=== PATIENT | female | born 1960 | race Caucasian/White ===

== ENCOUNTER 2017-09-06 02:18 | Inpatient (IN) | payer OTHER, MEDICARE ==
[~2017-09-06] VITALS: Ht 172.7 cm; Wt 107.4 kg
[2017-09-06 02:45] VITALS: BP 127/75; PULSE 103; RESP 14; RESP 16; TEMP 98.1; O2SAT 95; O2SAT 98
[2017-09-06] MEDS ORDERED: ceFAZolin 2 GM PREMIX 50 ML ONE (03:06)
[2017-09-06] MEDS ORDERED: GENTAMICIN 80 MG PREMIX 100 ML ONE (03:06)
[2017-09-06] MEDS ORDERED: ONDANSETRON HCL 4 MG/2 ML VIAL IV PUSH ONE ×2 (03:15→03:30)
[2017-09-06] MEDS ORDERED: GENTAMICIN 80 MG PREMIX 100 ML IV ONE (03:15)
[2017-09-06] MEDS ORDERED: ceFAZolin 2 GM PREMIX 50 ML IV ONE (03:15)
[2017-09-06] MEDS ORDERED: SODIUM CHLORIDE 0.9% FLUSH 10 ML FLUSH IVF PRN (03:15)
[2017-09-06] MEDS ORDERED: MORPHINE SULFATE 2 MG/ML INJ IV PUSH ONE (03:30)
--- NOTE | 2017-09-06 03:43 | RADRPT ---
EXAM DATE/TIME: 09/06/2017 03:00 [facility] COMPARISON: No previous studies available for comparison. INDICATIONS : Pt fell from standing position MEDICAL HISTORY : None. SURGICAL HISTORY : None. ENCOUNTER: Initial ACUITY: 1 day PAIN SCORE: 9/10 LOCATION: Right Ankle FINDINGS: Displaced oblique comminuted fractures of the distal tibia and fibula. There is good alignment At the mortise joint. Soft tissue injury at the fracture site. CONCLUSION: Displaced oblique comminuted fractures of the distal tibia and fibula. Shashi Espinosa MD on September 06, 2017 at 3:40 Board Certified Radiologist. This report was verified electronically.
[2017-09-06 03:52] LABS: AUTOMATED NEUTROPHIL # 5.6 TH/MM3 (1.8-7.7); BASOPHIL % 0.4 % (0.0-2.0); EOSINOPHIL # 0.1 TH/MM3 (0-0.4); HEMATOCRIT 29.7 % (35.0-46.0); HEMOGLOBIN 9.3 GM/DL (11.6-15.3); LYMPH % 24.5 % (9.0-44.0); MEAN CELL VOLUME 87.1 FL (80.0-100.0); MEAN CORPUSCULAR HEMOGLOBIN 27.1 PG (27.0-34.0); MEAN CORPUSCULAR HGB CONC 31.2 % (32.0-36.0); MEAN PLATELET VOLUME 6.7 FL (7.0-11.0); MONO % 4.5 % (0.0-8.0); MONOCYTE # 0.4 TH/MM3 (0-0.9); NEUT % 69.6 % (16.0-70.0); PLATELET COUNT 165 TH/MM3 (150-450); RED BLOOD COUNT 3.41 MIL/MM3 (4.00-5.30); RED CELL DISTRIBUTION WIDTH 16.3 % (11.6-17.2); WHITE BLOOD COUNT 8.1 TH/MM3 (4.0-11.0)
[2017-09-06 04:07] LABS: INTERNATIONAL NORMALIZED RATIO 1.1 RATIO; PROTHROMBIN TIME - PATIENT 11.4 SEC (9.8-11.6)
[2017-09-06 04:10] LABS: BICARBONATE 31.5 MEQ/L (21.0-32.0); BLOOD UREA NITROGEN 10 MG/DL (7-18); CALCIUM 7.2 MG/DL (8.5-10.1); CHLORIDE 105 MEQ/L (98-107); CREATININE 1.22 MG/DL (0.50-1.00); GLOMERULAR FILTRATION RATE 45 ML/MIN (>89); GLUCOSE,RANDOM 72 MG/DL (74-106); SODIUM (NA) 140 MEQ/L (136-145)
--- NOTE | 2017-09-06 04:10 | RADRPT ---
EXAM DATE/TIME: 09/06/2017 03:46 [facility] COMPARISON: No previous studies available for comparison. INDICATIONS : Pain post fall from standing position MEDICAL HISTORY : Diabetes mellitus type II. SURGICAL HISTORY : None. ENCOUNTER: Initial ACUITY: 1 day PAIN SCORE: 8/10 LOCATION: Bilateral chest FINDINGS: A single view of the chest demonstrates the lungs to be symmetrically aerated without evidence of mas s, infiltrate or effusion. The cardiomediastinal contours are unremarkable. Osseous structures are intact. CONCLUSION: No acute disease. Shashi Espinosa MD on September 06, 2017 at 4:07 Board Certified Radiologist. This report was verified electronically.
--- NOTE | 2017-09-06 04:11 | RADRPT ---
EXAM DATE/TIME: 09/06/2017 03:55 [facility] COMPARISON: No previous studies available for comparison. INDICATIONS : Trauma. Fall. RADIATION DOSE: 34.15 CTDIvol (mGy) MEDICAL HISTORY : None SURGICAL HISTORY : None. ENCOUNTER: Initial ACUITY: 1 day PAIN SCALE: 0/10 LOCATION: cranial TECHNIQUE: Multiple contiguous axial images were obtained of the head. Using automated exposure control and adj ustment of the mA and/or kV according to patient size, radiation dose was kept as low as reasonably a chievable to obtain optimal diagnostic quality images. DICOM format image data is available electro nically for review and comparison. FINDINGS: CEREBRUM: The ventricles are normal for age. No evidence of midline shift, mass lesion, hemorrhage or acute in farction. No extra-axial fluid collections are seen. POSTERIOR FOSSA: The cerebellum and brainstem are intact. The 4th ventricle is midline. The cerebellopontine angle i s unremarkable. EXTRACRANIAL: The visualized portion of the orbits is intact. SKULL: The calvaria is intact. No evidence of skull fracture. CONCLUSION: Normal examination for a patient of this age. Shashi Espinosa MD on September 06, 2017 at 4:09 Board Certified Radiologist. This report was verified electronically.
--- NOTE | 2017-09-06 04:13 | RADRPT ---
EXAM DATE/TIME: 09/06/2017 03:55 [facility] COMPARISON: No previous studies available for comparison. INDICATIONS : Trauma. Fall. RADIATION DOSE: 22.47 CTDIvol (mGy) MEDICAL HISTORY : None SURGICAL HISTORY : None. ENCOUNTER: Initial ACUITY: 1 day PAIN SCALE: 0/10 LOCATION: neck TECHNIQUE: Volumetric scanning of the cervical spine was performed. Multiplanar reconstructions in the sagittal, coronal and oblique axial planes were performed. Using automated exposure control and adjustment o f the mA and/or kV according to patient size, radiation dose was kept as low as reasonably achievable to obtain optimal diagnostic quality images. DICOM format image data is available electronically f or review and comparison. FINDINGS: VERTEBRAE: Normal vertebral body height. There is solid bony fusion at C4-5. There are mild to moderate degenera tive changes involving the cervical spine from C3-C7. ALIGNMENT: No evidence of subluxation. C2-C3: The bony spinal canal is normal in size. No evidence of disc bulge or herniation. The neural forami na are bilaterally patent. C3-C4: The bony spinal canal is normal in size. No evidence of disc bulge or herniation. The neural forami na are bilaterally patent. C4-C5: The bony spinal canal is normal in size. No evidence of disc bulge or herniation. The neural forami na are bilaterally patent. C5-C6: The bony spinal canal is normal in size. No evidence of disc bulge or herniation. The neural forami na are bilaterally patent. C6-C7: The bony spinal canal is normal in size. No evidence of disc bulge or herniation. The neural forami na are bilaterally patent. C7-T1: The bony spinal canal is normal in size. No evidence of disc bulge or herniation. The neural forami na are bilaterally patent. CONCLUSION: 1. No acute bony fracture. 2. Primary degenerative changes involving the cervical spine. 3. Solid bony fusion at C4-5. Shashi Espinosa MD on September 06, 2017 at 4:10 Board Certified Radiologist. This report was verified electronically.
--- NOTE | 2017-09-06 04:14 | RADRPT ---
EXAM DATE/TIME: 09/06/2017 03:46 [facility] COMPARISON: No previous studies available for comparison. INDICATIONS : Pain post fall from standing position MEDICAL HISTORY : Diabetes mellitus type II. SURGICAL HISTORY : None. ENCOUNTER: Initial ACUITY: 1 day PAIN SCORE: 8/10 LOCATION: Bilateral pelvis FINDINGS: A single frontal view of the pelvis demonstrates no evidence of fracture. The bony pelvic ring is in tact. Bony mineralization is normal. The soft tissues are intact. There is good alignment of the SI joints and pubic symphysis. CONCLUSION: Normal examination for a patient of this age. Shashi Espinosa MD on September 06, 2017 at 4:12 Board Certified Radiologist. This report was verified electronically.
[2017-09-06 04:18] VITALS: BP 162/68; PULSE 103; RESP 16; O2SAT 95
[2017-09-06] MEDS ORDERED: SODIUM CHLOR 0.9% 1000 ML INJ 1,000 ML IV SCH (04:27)
[2017-09-06 04:29] LABS: TOTAL PROTEIN 6.8 GM/DL (6.4-8.2)
[2017-09-06] MEDS ORDERED: ACETAMINOPHEN 325 MG TAB PO PRN (04:30)
[2017-09-06] MEDS ORDERED: BISACODYL 10 MG SUPP RECTAL PRN (04:30)
[2017-09-06] MEDS ORDERED: SENNOSIDES 8.6 MG TAB PO PRN (04:30)
[2017-09-06] MEDS ORDERED: MAGNESIUM HYDROXIDE SUSP 30 ML CUP PO PRN (04:30)
[2017-09-06] MEDS ORDERED: SODIUM CHLORIDE 0.9% FLUSH 10 ML FLUSH IV FLUSH PRN ×2 (04:30→11:00)
[2017-09-06] MEDS ORDERED: LACTULOSE SYRUP 20 GM/30 ML CUP PO PRN (04:30)
[2017-09-06 04:42] LABS: CALCIUM-PROTEIN CORRECTED 7.4 MG/DL (8.5-10.1)
[2017-09-06] MEDS ORDERED: CALCIUM GLUCONATE 10% 1 GM/10 ML VIAL IV PUSH ONE (05:00)
[2017-09-06] MEDS ORDERED: DEXTROSE 50% IN WATER 50 ML VIAL(D50) IV PUSH PRN (05:00)
[2017-09-06] MEDS ORDERED: GLUCAGON 1 MG/ML VIAL OTHER PRN (05:00)
[2017-09-06] MEDS ORDERED: MELO7.5T27 PO (05:01)
[2017-09-06] MEDS ORDERED: NOVO7030P2 SQ (05:01)
[2017-09-06] MEDS ORDERED: LEXA5TAB PO (05:01)
[2017-09-06] MEDS ORDERED: SOMA250T PO (05:01)
[2017-09-06] MEDS ORDERED: NEUR600T PO (05:01)
[2017-09-06] MEDS ORDERED: XANA2TAB2 PO (05:01)
[2017-09-06] MEDS ORDERED: DIVA250ER PO (05:01)
[2017-09-06] MEDS ORDERED: OXYC60TA8 PO (05:01)
--- NOTE | 2017-09-06 05:04 | HHI.HP ---
[facility] Unknown Admission Diagnosis Open comminuted R tib/fib fracture; DM; chronic pain Diagnoses: (1) Fall Diagnosis: Principal (2) Open fracture of right fibula and tibia Diagnosis: Principal (3) Renal insufficiency Diagnosis: Principal (4) Hypocalcemia Diagnosis: Principal (5) DM (diabetes mellitus) Diagnosis: Principal Travel History International Travel<30 Days: No Contact w/Intl Traveler <30 Da: No Traveled to Known Affected Are: No History of Present Illness This is a 57-year-old female with a PMH of HTN, Chronic Back Pain and DM who is brought to the ER by EMS secondary to fall w/ right leg pain. Pt w/ mechanical fall from standing position, no head trauma or LOC reported. Obvious open right leg injury. S/p Morphine 10mg IV prior to arrival, pt poor historian due to medication, however reports severe 10/10 pain, constant, sharp, non- radiating. On arrival, BP 127/75, HR 103, O2 sat 95% on 2L NC, Afebrile. CBC essentially unremarkable. Creatinine 1.22, previous labs for comparison. Calcium 7.2. INR 1.1. Alcohol negative. CT Head normal. CT C-spine with no acute fracture. CXR negative. Pelvic X-ray normal. Ankle X-ray with displaced oblique comminuted fractures of distal tibia and fibula. S/p splint in ER. Dr. Deutsch consulted by ER physician, plan is for surgical intervention. Review of Systems Except as stated in HPI: all other systems reviewed are Neg ROS: 14 point review of systems otherwise negative. Past Family Social History Past Medical History PMH: HTN, Chronic Back Pain and DM Past Surgical History PAST SURGICAL HISTORY: Cholecystectomy Allergies: Coded Allergies: No Known Allergies (Unverified , 09/06/17) Family History PAST FAMILY HISTORY: Reviewed. No h/o DM or CAD Social History PAST SOCIAL HISTORY: Negative for alcohol, tobacco or drugs. Physical Exam Vital Signs Vital Signs Date Time Temp Pulse Resp B/P (MAP) Pulse Ox O2 Delivery O2 Flow Rate FiO2 09/06/17 04:18 103 16 162/68 (99) 95 Nasal Cannula 2.00 09/06/17 02:45 95 Nasal Cannula 3.00 09/06/17 02:45 98.1 103 14 127/75 (92) 98 Nasal Cannula 2.00 09/06/17 02:45 16 95 Nasal Cannula 3.00 Physical Exam PE: GENERAL: Middle-aged white female in no acute distress. Sedated secondary to medication. HEENT: PERRLA, EOMI. No scleral icterus or conjunctival pallor. No lid lag or facial droop. CARDIOVASCULAR: Regular rate and rhythm. No obvious murmurs to auscultation. No chest tenderness to palpation. RESPIRATORY: No obvious rhonchi or wheezing. Clear to auscultation. Breath sounds equal bilaterally. GASTROINTESTINAL: Abdomen soft, non-tender, nondistended. BS normal. MUSCULOSKELETAL: Extremities without clubbing, cyanosis, or edema. No obvious deformities. Decreased ROM of RLE due to injury. Pulses intact. NEUROLOGICAL: Awake, alert. No focal neurologic deficits. Moving both upper and lower extremities spontaneously. Laboratory Laboratory Tests Test 09/06/17 03:40 White Blood Count 8.1 Red Blood Count 3.41 Hemoglobin 9.3 Hematocrit 29.7 Mean Corpuscular Volume 87.1 Mean Corpuscular Hemoglobin 27.1 Mean Corpuscular Hemoglobin Concent 31.2 Red Cell Distribution Width 16.3 Platelet Count 165 Mean Platelet Volume 6.7 Neutrophils (%) (Auto) 69.6 Lymphocytes (%) (Auto) 24.5 Monocytes (%) (Auto) 4.5 Eosinophils (%) (Auto) 1.0 Basophils (%) (Auto) 0.4 Neutrophils # (Auto) 5.6 Lymphocytes # (Auto) 2.0 Monocytes # (Auto) 0.4 Eosinophils # (Auto) 0.1 Basophils # (Auto) 0.0 CBC Comment DIFF FINAL Differential Comment Prothrombin Time 11.4 Prothromb Time International Ratio 1.1 Activated Partial Thromboplast Time 26.6 Blood Urea Nitrogen 10 Creatinine 1.22 Random Glucose 72 Total Protein 6.8 Calcium Level 7.2 Sodium Level 140 Potassium Level 3.8 Chloride Level 105 Carbon Dioxide Level 31.5 Anion Gap 4 Estimat Glomerular Filtration Rate 45 Protein Corrected Calcium 7.4 Ethyl Alcohol Level LESS THAN 3 Result Diagram: 09/06/1733909/06/17339 Caprini VTE Risk Assessment Caprini VTE Risk Assessment: Mod/High Risk (score >= 2) Caprini Risk Assessment Model Point Value = 1 Point Value = 2 Point Value = 3 Point Value = 5 Age 41-60 Minor surgery BMI > 25 kg/m2 Swollen legs Varicose veins or History of unexplained or recurrent spontaneous Oral contraceptives or hormone replacement Sepsis (< 1 month) Serious lung disease, including pneumonia (< 1 month) Abnormal pulmonary function Acute myocardial infarction Congestive heart failure (< 1 month) History of inflammatory bowel disease Medical patient at bed rest Age 61-74 Arthroscopic surgery Major open surgery (> 45 min) Laparoscopic surgery (> 45 min) Malignancy Confined to bed (> 72 hours) Immobilizing plaster cast Central venous access Age >= 75 History of VTE Family history of VTE Factor V Leiden Prothrombin [id number] Lupus anticoagulant Anticardiolipin antibodies Elevated serum homocysteine Heparin-induced thrombocytopenia Other congenital or acquired thrombophilia Stroke (< 1 month) Elective arthroplasty Hip, pelvis, or leg fracture Acute spinal cord injury (< 1 month) Prophylaxis Regimen Total Risk Factor Score Risk Level Prophylaxis Regimen 0-1 Low Early ambulation 2 Moderate Order ONE of the following: *Sequential Compression Device (SCD) *Heparin 5000 units SQ BID 3-4 Higher Order ONE of the following medications: *Heparin 5000 units SQ TID *Enoxaparin/Lovenox 40 mg SQ daily (WT < 150 kg, CrCl > 30 mL/min) *Enoxaparin/Lovenox 30 mg SQ daily (WT < 150 kg, CrCl > 10-29 mL/min) *Enoxaparin/Lovenox 30 mg SQ BID (WT < 150 kg, CrCl > 30 mL/min) AND/OR *Sequential Compression Device (SCD) 5 or more Highest Order ONE of the following medications: *Heparin 5000 units SQ TID (Preferred with Epidurals) *Enoxaparin/Lovenox 40 mg SQ daily (WT < 150 kg, CrCl > 30 mL/min) *Enoxaparin/Lovenox 30 mg SQ daily (WT < 150 kg, CrCl > 10-29 mL/min) *Enoxaparin/Lovenox 30 mg SQ BID (WT < 150 kg, CrCl > 30 mL/min) AND *Sequential Compression Device (SCD) Assessment and Plan Problem List: (1) Fall ICD Code: W19.XXXA - Unspecified fall, initial encounter (2) Open fracture of right fibula and tibia ICD Code: S82.201B - Unspecified fracture of shaft of right tibia, initial encounter for open fracture type I or II; S82.401B - Unspecified fracture of shaft of right fibula, initial encounter for open fracture type I or II (3) Hypocalcemia ICD Code: E83.51 - Hypocalcemia (4) Renal insufficiency ICD Code: N28.9 - Disorder of kidney and ureter, unspecified (5) DM (diabetes mellitus) ICD Code: E11.9 - Type 2 diabetes mellitus without complications Assessment and Plan A/P: 1. Fall: s/p mechanical fall from standing position, no LOC or head trauma. CT Head w/ no acute findings, CT C-Spine negative for fracture, images reviewed by me. 2. Right Tib-Fib Fx: Acute. Open. Secondary to fall. Ankle X-ray w/ displaced oblique comminuted fractures of the distal tibia and fibula, images reviewed by me. Dr. Deutsch consulted by ER physician, plan is for surgical intervention. NPO, IVF, analgesics/antiemetics as needed-caution w/ over- sedation. CT LE pending, will follow up results. 3. Hypocalcemia: Ca 7.2, will give Ca 1gm IV now, recheck labs in am 4. Renal Insufficiency: Creatinine 1.22, no previous labs for comparison. IVF for hydration. Repeat labs in am. 5. DM: Sliding scale w/ Accu-Cheks. Resume home Insulin post-op 6. DVT Prophylaxis: Anticoagulation post op per Ortho 7. Social work for d/c planning as needed. 8. Case discussed w/ ER physician at length, records/labs/imaging reviewed by me. Physician Certification 2 Midnight Certification Type: Admission for Inpatient Services Order for Inpatient Services The services are ordered in accordance with Medicare regulations or non- Medicare payer requirements, as applicable. In the case of services not specified as inpatient-only, they are appropriately provided as inpatient services in accordance with the 2-midnight benchmark. Estimated LOS (days): 2 days is the estimated time the patient will need to remain in the hospital, assuming treatment plan goals are met and no additional complications. Post-Hospital Plan: Not yet determined Autumn Nam MD Sep 06, 2017 05:04
[2017-09-06] MEDS ORDERED: PILL SPLITTER OTHER PRN (05:15)
[2017-09-06] MEDS ORDERED: CALCIUM GLUCONATE INJ 1 GM in DEXTROSE 5% IN WATER 100ML INJ 100 ML IV ONE ×2 (05:15)
--- NOTE | 2017-09-06 05:28 | RADRPT ---
EXAM DATE/TIME: 09/06/2017 05:11 [facility] COMPARISON: No previous studies available for comparison. INDICATIONS : Trauma, fall. RADIATION DOSE: 7.29 CTDIvol (mGy) MEDICAL HISTORY : None SURGICAL HISTORY : None. ENCOUNTER: Initial ACUITY: 1 day PAIN SCALE: 10/10 LOCATION: Right ankle. TECHNIQUE: Volumetric scanning of the tibia and fibula was performed. Using automated exposure control and adju stment of the mA and/or kV according to patient size, radiation dose was kept as low as reasonably ac hievable to obtain optimal diagnostic quality images. DICOM format image data is available [facility] for review and comparison. FINDINGS: There are displaced fractures involving the distal tibia and fibula. There is a fracture line extendi ng into the articulating surface of the distal tibia at the mortise joint. There is a fracture of the distal fibula. No joint dislocation is demonstrated. The talus bone is grossly intact. CONCLUSION: Comminuted displaced fractures involving the distal one third shaft of the tibia and fibula. There is a nondisplaced intra-articular fracture involving the distal tibia at the mortise joint. There are f ractures involving the distal fibula. Shashi Espinosa MD on September 06, 2017 at 5:23 Board Certified Radiologist. This report was verified electronically.
--- NOTE | 2017-09-06 05:38 | PD ---
HPI Chief Complaint: Injury Time Seen by Provider: 03:09 Travel History International Travel<30 days: No Contact w/Intl Traveler<30days: No Traveled to known affect area: No History of Present Illness HPI 57-year-old female presents to the emergency department from home by EMS transport for evaluation of acute distal right lower leg injury. Patient presents with obvious open fracture of the distal right lower leg. Patient states that she was in her bathroom the floor strep Ellen she lost her balance and fell. Patient denies hitting her head or having loss of consciousness. Patient has chronic neck pain. Patient denies upper back pain lower back pain chest pain abdominal pain pelvic pain or other extremity pain. Patient does have history of diabetes as well as chronic pain syndrome. According to the at bedside she also has intermittent numbness of the left or right foot that sometimes gives way on her but this is not persistent. Patient is treated with oxycodone and OxyContin for chronic pain syndrome. Patient received morphine sulfate 10 mg IV via EMS prior to arrival and also presented with posterior cardboard splint of the right lower leg. Patient denies other injury. Last oral intake was sometime around midnight or before. reports he went to bed at 10:30 PM and heard her yelling for him but he found her in the evening room but evidence of injury had occurred in the bathroom with bleeding on the floor. Patient had pulled herself into the living room. did not witness fall states certain objects for her to stand upon except perhaps a toilet to follow-up nothing was broken in the bathroom. Tetanus status is current according the patient within the past 2-3 years. PFSH Past Medical History Narrative Medical Diabetes anxiety depression chronic back pain and chronic pain syndrome cholecystectomy no tobacco use nursing notes reviewed Diabetes: Yes Patient Takes Glucophage: No Diminished Hearing: No Musculoskeletal: Yes (CHRONIC BACK PAIN) Immunizations Current: Yes Past Surgical History Cholecystectomy: Yes Social History Alcohol Use: No Tobacco Use: No Substance Use: No Allergies-Medications (Allergen,Severity, Reaction): Coded Allergies: No Known Allergies (Unverified , 09/06/17) Reported Meds & Prescriptions Reported Meds & Active Scripts Active Reported Novolin 70-30 Inj (Insulin Human Isoph/Insulin Regular) 1,000 Unit/10 Ml Vial 35 Units SQ BID Soma (Carisoprodol) 250 Mg Tab 250 Mg PO TID PRN Meloxicam 7.5 Mg Tab 7.5 Mg PO DAILY Lexapro (Escitalopram Oxalate) 5 Mg Tab 5 Mg PO DAILY Neurontin (Gabapentin) 600 Mg Tab 600 Mg PO BID Depakote ER (Divalproex Sodium) 250 Mg Aisha 250 Mg PO DAILY Xanax (Alprazolam) 2 Mg Tab 2 Mg PO BID PRN Oxycontin (Oxycodone HCl) 60 Mg Tab 60 Mg PO TID Review of Systems Except as stated in HPI: all other systems reviewed are Neg Physical Exam Narrative GENERAL: Well-developed well-nourished obese female in no acute distress as she has received morphine sulfate 2 mg IV prior to arrival to the emergency department; GCS 15 SKIN: Warm and dry. HEAD: Atraumatic. Normocephalic. EYES: Pupils equal and round. No scleral icterus. No injection or drainage. ENT: No nasal bleeding or discharge. Mucous membranes pink and moist. NECK: Trachea midline. No JVD. CARDIOVASCULAR: Regular rate and rhythm. RESPIRATORY: No accessory muscle use. Clear to auscultation. Breath sounds equal bilaterally. GASTROINTESTINAL: Abdomen soft, non-tender, nondistended. Hepatic and splenic margins not palpable. MUSCULOSKELETAL: Extremities without clubbing, cyanosis, or edema. No obvious deformities. Obvious right lower leg deformity with external rotation large 10 cm x 8 cm x 5 cm gaping laceration bony fragments are not visualized large amount of subcutaneous fat is noted dorsalis pedis pulses 2+ to palpation with capillary refill brisk and less than 2 seconds per digit patient reports intact sensation to light touch and able to demonstrate range of motion of toes range of motion of ankle is deferred in view of location of fracture. NEUROLOGICAL: Awake and alert. No obvious cranial nerve deficits. Motor grossly within normal limits. Five out of 5 muscle strength in the arms and legs. Normal speech. PSYCHIATRIC: Appropriate mood and affect; insight and judgment normal. Data Data Last Documented VS Vital Signs Date Time Temp Pulse Resp B/P (MAP) Pulse Ox O2 Delivery O2 Flow Rate FiO2 09/06/17 04:18 103 16 162/68 (99) 95 Nasal Cannula 2.00 09/06/17 02:45 98.1 Orders Orders Ankle, Complete ([id number]) (09/06/17 ) Cefazolin 2 Gm Premix (Ancef 2 Gm Premix (09/06/17 03:06) Gentamicin 80 Mg Premix (Gentamicin 80 M (09/06/17 03:06) Basic Metabolic Panel (Bmp) (09/06/17 03:09) Complete Blood Count With Diff (09/06/17 03:09) Prothrombin Time / Inr (Pt) (09/06/17 03:09) Act Partial Throm Time (Ptt) (09/06/17 03:09) Type And Screen (09/06/17 03:09) Alcohol (Ethanol) (09/06/17 03:09) Drug Screen, Random Urine (09/06/17 03:09) Chest, Single Ap (09/06/17 03:09) Ct Brain W/O Iv Contrast(Rout) (09/06/17 03:09) Ct Cerv Spine W/O Contrast (09/06/17 03:09) Iv Access Insert/Monitor (09/06/17 03:09) Ecg Monitoring (09/06/17 03:09) Oximetry (09/06/17 03:09) Oxygen Administration (09/06/17 03:09) Cefazolin 2 Gm Premix (Ancef 2 Gm Premix (09/06/17 03:15) Ondansetron Inj (Zofran Inj) (09/06/17 03:15) Sodium Chloride 0.9% Flush (Ns Flush) (09/06/17 03:15) Gentamicin 80 Mg Premix (Gentamicin 80 M (09/06/17 03:15) NPO (09/06/17 03:09) Splint Or Brace Apply/Monitor (09/06/17 03:09) Electrocardiogram (09/06/17 ) Morphine Inj (Morphine Inj) (09/06/17 03:30) Ondansetron Inj (Zofran Inj) (09/06/17 03:30) Pelvis, Ap Only (Routine) (09/06/17 ) Protein Corrected Calcium(Pcc) (09/06/17 03:40) Ct Tib/Fib W/O Iv Contrast (09/06/17 ) Admit Order (Ed Use Only) (09/06/17 ) Non Categorical Preschool Teacher / Telemetry [id number] (09/06/17 04:25) Diet Npo (09/06/17 Breakfast) Activity Bed Rest (09/06/17 04:25) Notify Dr: Other (09/06/17 04:25) Consult Orthopedic (09/06/17 ) Admit To Inpatient (09/06/17 ) Vital Signs (Adult) Q4H (09/06/17 04:27) Activity Bed Rest (09/06/17 04:27) Sodium Chlor 0.9% 1000 Ml Inj (Ns 1000 M (09/06/17 04:27) Sodium Chloride 0.9% Flush (Ns Flush) (09/06/17 04:30) Sodium Chloride 0.9% Flush (Ns Flush) (09/06/17 09:00) Ondansetron Inj (Zofran Inj) (09/06/17 04:30) Comprehensive Metabolic Panel (09/07/17 06:00) Complete Blood Count With Diff (09/07/17 06:00) Acetaminophen (Tylenol) (09/06/17 04:30) Acetamin-Hydrocod 325-5 Mg ([place] 5-325 (09/06/17 04:30) Morphine Inj (Morphine Inj) (09/06/17 04:30) Docusate Sodium-Senna (Stacy-Colace) (09/06/17 09:00) Magnesium Hydroxide Liq (Milk Of Magnesi (09/06/17 04:30) Sennosides (Senokot) (09/06/17 04:30) Bisacodyl Supp (Dulcolax Supp) (09/06/17 04:30) Lactulose Liq (Lactulose Liq) (09/06/17 04:30) Inpatient Certification (09/06/17 ) Labs Laboratory Tests Test 09/06/17 03:40 White Blood Count 8.1 TH/MM3 Red Blood Count 3.41 MIL/MM3 Hemoglobin 9.3 GM/DL Hematocrit 29.7 % Mean Corpuscular Volume 87.1 FL Mean Corpuscular Hemoglobin 27.1 PG Mean Corpuscular Hemoglobin Concent 31.2 % Red Cell Distribution Width 16.3 % Platelet Count 165 TH/MM3 Mean Platelet Volume 6.7 FL Neutrophils (%) (Auto) 69.6 % Lymphocytes (%) (Auto) 24.5 % Monocytes (%) (Auto) 4.5 % Eosinophils (%) (Auto) 1.0 % Basophils (%) (Auto) 0.4 % Neutrophils # (Auto) 5.6 TH/MM3 Lymphocytes # (Auto) 2.0 TH/MM3 Monocytes # (Auto) 0.4 TH/MM3 Eosinophils # (Auto) 0.1 TH/MM3 Basophils # (Auto) 0.0 TH/MM3 CBC Comment DIFF FINAL Differential Comment Prothrombin Time 11.4 SEC Prothromb Time International Ratio 1.1 RATIO Activated Partial Thromboplast Time 26.6 SEC Blood Urea Nitrogen 10 MG/DL Creatinine 1.22 MG/DL Random Glucose 72 MG/DL Total Protein 6.8 GM/DL Calcium Level 7.2 MG/DL Sodium Level 140 MEQ/L Potassium Level 3.8 MEQ/L Chloride Level 105 MEQ/L Carbon Dioxide Level 31.5 MEQ/L Anion Gap 4 MEQ/L Estimat Glomerular Filtration Rate 45 ML/MIN Protein Corrected Calcium 7.4 MG/DL Ethyl Alcohol Level LESS THAN 3 MG/DL MDM Medical Decision Making Medical Screen Exam Complete: Yes Emergency Medical Condition: Yes Medical Record Reviewed: Yes Interpretation(s) EKG sinus tachycardia rate [address] elevation or injury pattern change noted no ectopy Last Impressions Head CT 09/06/17308 Signed Impressions: Service Date/Time: Wednesday, September 06, 2017 03:55 - CONCLUSION: Normal examination for a patient of this age. Shashi Espinosa MD Chest X-Ray 09/06/17308 Signed Impressions: Service Date/Time: Wednesday, September 06, 2017 03:46 - CONCLUSION: No acute disease. Shashi Espinosa MD Cervical Spine CT 09/06/17308 Signed Impressions: Service Date/Time: Wednesday, September 06, 2017 03:55 - CONCLUSION: 1. No acute bony fracture. 2. Primary degenerative changes involving the cervical spine. 3. Solid bony fusion at C4-5. Shashi Espinosa MD Pelvis X-Ray 09/06/17 0000 Signed Impressions: Service Date/Time: Wednesday, September 06, 2017 03:46 - CONCLUSION: Normal examination for a patient of this age. Shashi Espinosa MD Ankle X-Ray 09/06/17 0000 Signed Impressions: Service Date/Time: Wednesday, September 06, 2017 03:00 - CONCLUSION: Displaced oblique comminuted fractures of the distal tibia and fibula. Shashi Espinosa MD CBC & BMP Diagram 09/06/17 03:40 Total Protein 6.8, Calcium Level 7.2 *L Vital Signs Date Time Temp Pulse Resp B/P (MAP) Pulse Ox O2 Delivery O2 Flow Rate FiO2 09/06/17 04:18 103 16 162/68 (99) 95 Nasal Cannula 2.00 09/06/17 02:45 95 Nasal Cannula 3.00 09/06/17 02:45 98.1 103 14 127/75 (92) 98 Nasal Cannula 2.00 09/06/17 02:45 16 95 Nasal Cannula 3.00 Differential Diagnosis Comminuted compound fracture, neurovascular tendon injury, minor closed head injury, cervical spine sprain strain fracture, polysubstance ingestion, seizure Narrative Course Patient placed on satellite project site monitor IV access obtained specimens collected and sent for resulting splinted ankle was exposed with large 10 x 8 x 5 cm laceration exposed subcutaneous fat no bony fragments identified dorsalis pedis pulse 2+ to palpation capillary refill less than 2 seconds imaging studies obtained and [place] posterior long leg splint applied; CT of the brain and cervical spine performed which reveals no acute abnormality chest x-ray unremarkable and pelvis x-ray reveals no acute bony abnormality; call was placed to conversion developer orthopedist in case discussed with Dr. Weaver. Recommends CT of the lower leg. Physician Communication Physician Communication discussed with Parish Deutsch --CT ab=nd will take patient to the OR at 7 AM admit to medicine --discussed with Amalia Storm MD Sep 06, 2017 05:38
[2017-09-06 05:40] VITALS: BP 130/73; PULSE 105; RESP 20; TEMP 97.6; O2SAT 95
[2017-09-06] MEDS ORDERED: POVIDONE IODINE 5% (ANTISEPSIS KIT) 4 APPLICATIONS EACH NARE PRN (06:00)
[2017-09-06] MEDS ORDERED: SODIUM CHLORID 0.9% 500 ML IV PRN (06:00)
[2017-09-06] MEDS ORDERED: CHLORHEXIDINE GLUCONATE 2 % 1 PACK (2 CLOTHS) TOPICAL PRN (06:00)
[2017-09-06] MEDS ORDERED: LACTATED RINGER'S 1000 ML IV PRN (06:00)
--- NOTE | 2017-09-06 07:17 | PD.ORT.PN ---
Objective Vitals Vital Signs Date Time Temp Pulse Resp B/P (MAP) Pulse Ox O2 Delivery O2 Flow Rate FiO2 09/06/17 05:40 97.6 105 20 130/73 (92) 95 09/06/17 05:35 09/06/17 04:18 103 16 162/68 (99) 95 Nasal Cannula 2.00 09/06/17 02:45 95 Nasal Cannula 3.00 09/06/17 02:45 98.1 103 14 127/75 (92) 98 Nasal Cannula 2.00 09/06/17 02:45 16 95 Nasal Cannula 3.00 I/O 09/05/17 09/05/17 09/05/17 09/06/17 09/06/17 09/06/17 07:00 15:00 23:00 07:00 15:00 23:00 Intake Total 150 ml Balance 150 ml IV Total 150 ml Result Diagram: 09/06/17 0340 09/06/17 0340 Other Results Laboratory Tests Test 09/06/17 03:40 Prothromb Time International Ratio 1.1 RATIO Prothrombin Time 11.4 SEC (9.8-11.6) Imaging Last [address] 09/06/17 030 Signed Impressions: Service Date/Time: Wednesday, September 06, 2017 03:55 - CONCLUSION: Normal examination for a patient of this age. Shashi Espinosa MD Chest X-Ray 09/06/17308 Signed Impressions: Service Date/Time: Wednesday, September 06, 2017 03:46 - CONCLUSION: No acute disease. Shashi Espinosa MD Cervical Spine CT 09/06/17 030 Signed Impressions: Service Date/Time: Wednesday, September 06, 2017 03:55 - CONCLUSION: 1. No acute bony fracture. 2. Primary degenerative changes involving the cervical spine. 3. Solid bony fusion at C4-5. Shashi Espinosa MD Pelvis X-Ray 09/06/17 0000 Signed Impressions: Service Date/Time: Wednesday, September 06, 2017 03:46 - CONCLUSION: Normal examination for a patient of this age. Shashi Espinosa MD Lower Extremity CT 09/06/17 0000 Signed Impressions: Service Date/Time: Wednesday, September 06, 2017 05:11 - CONCLUSION: Comminuted displaced fractures involving the distal one third shaft of the tibia and fibula. There is a nondisplaced intra-articular fracture involving the distal tibia at the mortise joint. There are fractures involving the distal fibula. Shashi Espinosa MD Ankle X-Ray 09/06/17 0000 Signed Impressions: Service Date/Time: Wednesday, September 06, 2017 03:00 - CONCLUSION: Displaced oblique comminuted fractures of the distal tibia and fibula. Shashi Espinosa MD Assessment & Plan Assessment and Plan Large Open tibia and fibular shaft fracture and nondisplaced ankle plafond fracture Recommend Urgent I and d and stabilization: internal vs. external Informed consent obtained Full note dictated Carlitos Deutsch MD Sep 06, 2017 07:17
[2017-09-06] MEDS ORDERED: GENTAMICIN SULFATE 80 MG/2 ML VIAL ONE (07:57)
[2017-09-06] MEDS ORDERED: ACETAMINOPHEN 1000 MG/100 ML 100 ML IV ONE (08:04)
--- NOTE | 2017-09-06 08:13 | MB ---
cc: OKSANA VARGAS M.D. DATE OF CONSULTATION: 09/06/2017 REASON FOR CONSULTATION: Severe right open tibia fracture and ankle fracture and tibial shaft fracture and ankle fracture. HISTORY OF PRESENT ILLNESS Nicol Avila is a 57-year-old female with insulin-dependent diabetes. She sustained a fall in her home and suffered a large open fracture of her right distal tibia and fibula with extension into the ankle joint both weightbearing, tibial plafond and distal fibula. The patient was initiated with antibiotics appropriately dressed and splinted and CT scan performed. She has been evaluated by medical service consultation requested with the undersigned with the plan to go for urgent surgery for this limb threatening condition. PAST MEDICAL HISTORY: 1. Her past medical history is significant for the insulin dependent diabetes. 2. She has hypertension 3. Chronic low back pain. PAST SURGICAL HISTORY: Past surgical history is positive for cholecystectomy. ALLERGIES NO KNOWN DRUG ALLERGIES. MEDICATIONS medications including Insulin are reviewed. SOCIAL HISTORY She is . Denies alcohol, tobacco and drugs. Her is at the bedside. PHYSICAL EXAMINATION IN GENERAL: The patient is alert, oriented and appropriate. She is somewhat emotional when we discuss the severity of her injury. EXTREMITIES: She has good function of bilateral upper extremities and left lower extremity. The right lower extremity is splinted and there is no bleeding visualized currently. The ER physician described the wound as 8 x 10 cm. She has good capillary refill at the toes and she has sensation which appears to be the same right and left. RADIOLOGIC: X-ray of the right tibia is reviewed which shows a distal shaft fracture, oblique of the tibia and also of the fibula slightly lower. Additionally there is radiolucency seen more distal in the fibula and a vertically oriented, oblique fracture line going all the way down from the shaft portion into the ankle joint. CT scan confirms a fracture line anterior-posterior involving the distal tibia as well as fibula involvement and the plafond appears to be intact. ASSESSMENT Severe open right tibia and fibula fracture with nondisplaced tibial plafond fracture. MEDICAL DECISION MAKING Her condition was discussed the options of treatment were discussed. The recommendation is to proceed with surgical intervention for irrigation and debridement with a number one goal to try to prevent infection on today's operation secondary goal is stabilization in the options of external fixator and internal fixator plate and screws and IM jade were discussed. There is a possibility of doing external fixator and coming back to later date we talked about the possibility of a vacuum-assisted closure device. We talked about the inherent risk of surgery and ultimately were trying to save the limb and there is theoretical risk of need for amputation as she has chronic wound problems and/or chronic swelling. There is risk of infection, nerve damage, blood vessel damage, anesthetic complications, medical complications, mechanical complications, need for revision surgery and unforeseen possible complications all of her questions were answered. A detailed informed consent. MD RENEE Adorno/pierce /7:07 AM /7:46 AM
[2017-09-06] MEDS ORDERED: HYDROmorphone HCL PF 2 MG/ML VIAL IV PRN (08:15)
[2017-09-06] MEDS ORDERED: FAMOTIDINE 20 MG/2 ML VIAL IV ONE (08:15)
[2017-09-06] MEDS ORDERED: MIDAZOLAM HCL 2 MG/2 ML VIAL IV ONE (08:30)
[2017-09-06] MEDS: SODIUM CHLORIDE 0.9% FLUSH 10 ML FLUSH IV FLUSH SCH ×2 (09:00→20:18)
[2017-09-06] MEDS: DOCUSATE SODIUM 50 MG/SENNA 8.6 MG TAB PO SCH ×2 (09:00→20:17)
--- NOTE | 2017-09-06 10:18 | RADRPT ---
EXAM DATE/TIME: 09/06/2017 08:43 [facility] COMPARISON: No previous studies available for comparison. INDICATIONS : Open reduction internal fixation of the right tibia. MEDICAL HISTORY : None. SURGICAL HISTORY : None. ENCOUNTER: Subsequent ACUITY: 1 day PAIN SCORE: Non-responsive. LOCATION: Right tibia. FINDINGS: 6 fluoroscopic spot images of the right tibia. Internal fixation jade with a proximal transfixing scre w is noted across tibial fracture. 2 distal fibular screws and 2 distal tibia screws also seen. CONCLUSION: Spot images showing surgical hardware in place in the distal tibia and fibula. Near anatomic alignmen t. Magdy Pop MD on September 06, 2017 at 10:14 Board Certified Radiologist. This report was verified electronically.
[2017-09-06] MEDS ORDERED: NALOXONE HCL 0.4 MG/ML AMP ONE ×2 (10:41)
[2017-09-06] MEDS: LACTATED RINGER'S 1000 ML INJ 1,000 ML IV SCH ×2 (10:52→20:52)
[2017-09-06] MEDS ORDERED: DO NOT ADM ANY ANTICOAGULANT DRUGS PRN (10:57)
[2017-09-06] MEDS ORDERED: Post-op Orders (for Pharmacy) XX ONE (11:00)
[2017-09-06] MEDS ORDERED: NALOXONE HCL 0.4 MG/ML AMP IV PUSH PRN (11:00)
[2017-09-06] MEDS ORDERED: MISCELLANEOUS NURSING INFORMATION XX PRN (11:00)
[2017-09-06] MEDS: INSULIN ASPART SUPPLEMENTAL SCALE SQ SCH ×4 (11:21→20:18)
[2017-09-06 12:00] VITALS: BP 143/66; PULSE 106; RESP 17; TEMP 96.9; O2SAT 95
[2017-09-06] MEDS ORDERED: ROCURONIUM INJ 50 MG/5 ML SYRINGE IV PUSH ONE (12:00)
[2017-09-06] MEDS ORDERED: LACTATED RINGER'S 1000 ML INJ 1,000 ML IV ONE (12:00)
[2017-09-06] MEDS ORDERED: SODIUM CHLOR 0.9% (EXCEL) INJ 250 ML IV ONE ×2 (12:00)
[2017-09-06] MEDS ORDERED: ONDANSETRON HCL 4 MG/2 ML VIAL IV ONE (12:00)
[2017-09-06] MEDS ORDERED: PHENYLEPHRINE HCL 10 MG/ML VIAL IV ONE (12:00)
[2017-09-06] MEDS ORDERED: GLYCOPYRROLATE 1 MG/5 ML SYRINGE IV PUSH ONE (12:00)
[2017-09-06] MEDS ORDERED: PHENYLEPH/NS 1000 MCG/10 ML SYR IV ONE (12:00)
[2017-09-06] MEDS ORDERED: ceFAZolin INJ 1,000 MG VIAL IV ONE (12:00)
[2017-09-06] MEDS ORDERED: PROPOFOL 200 MG/20 ML AMP IV ONE (12:00)
[2017-09-06] MEDS ORDERED: NEOSTIGMINE 5 MG/5 ML SYRINGE IV PUSH ONE (12:00)
[2017-09-06] MEDS ORDERED: ePHEDrine/NS 25 MG/5 ML SYRINGE IV ONE (12:00)
[2017-09-06] MEDS ORDERED: LIDOCAINE HCL 1% PF 5 ML SYRINGE OTHER ONE (12:00)
--- NOTE | 2017-09-06 12:27 | PD.OP ---
Operative Report Preoperative Diagnosis: (1) Closed fracture of tibial plafond with fibula involvement (2) Open fracture of right fibula and tibia Postoperative Diagnosis: (1) Open fracture of right fibula and tibia (2) Closed fracture of tibial plafond with fibula involvement Procedure: Right Tibia and Fibula Irrigation and Debridement Right Tibia and Fibula Open reduction and internal fixation Right Ankle Plafond Open Reduction and Internal fixation Surgeon: Carlitos Deutsch Air Dispatcher(s): Roby ZULETA Operation and Findings: see dictation Carlitos Deutsch MD Sep 06, 2017 12:27
[2017-09-06] MEDS: oxyCODONE HCL 20 MG CONTROLLED RELEASE TAB PO SCH ×2 (12:51→23:34)
[2017-09-06] MEDS: ALPRAZolam 1 MG TAB PO PRN ×2 (12:52→20:27)
[2017-09-06] MEDS: MORPHINE SULFATE 2 MG/ML INJ IV PUSH PRN ×2 (12:52→18:38)
[2017-09-06] MEDS: DIVALPROEX SODIUM E.R. 250 MG TAB PO SCH (12:57)
[2017-09-06] MEDS: GABAPENTIN 300 MG CAP PO SCH ×2 (12:57→20:17)
[2017-09-06] MEDS: ESCITALOPRAM OXALATE 10 MG TAB PO SCH (12:57)
[2017-09-06] MEDS ORDERED: ceFAZolin 2 GM PREMIX 50 ML IV SCH (13:00)
[2017-09-06] MEDS: GENTAMICIN 80 MG PREMIX 100 ML IV SCH ×2 (13:00→20:30)
[2017-09-06] MEDS: PCA - TOTAL MG DILAUDID DELIVERED PER SHIFT OTHER SCH ×2 (14:00→22:00)
--- NOTE | 2017-09-06 15:30 | EKG ---
Date Performed: 09/06/2017 Time Performed: 05:27:54 PTAGE: 57 years EKG: SINUS TACHYCARDIA POSSIBLE LEFT ATRIAL ENLARGEMENT BORDERLINE LEFT AXIS DEVIATION ABNORMAL RHYTHM ECG NO PREVIOUS TRACING DOCTOR: Saul Santos Interpretating Date/Time 09/06/2017 15:29:14
[2017-09-06 16:00] VITALS: BP 108/49; PULSE 108; RESP 19; TEMP 96.9; O2SAT 97
[2017-09-06] MEDS: ACETAMINOPHEN/HYDROcodone 325 MG/5 MG TAB PO PRN ×2 (17:02→20:28)
[2017-09-06] MEDS: ceFAZolin 2 GM PREMIX 50 ML IV SCH (18:39)
[2017-09-06 20:00] VITALS: BP 122/54; PULSE 104; PULSE 115; RESP 17; TEMP 97.9; O2SAT 96
[2017-09-06] MEDS ORDERED: SODIUM CHLORIDE 0.9% FLUSH 10 ML FLUSH IV FLUSH SCH (21:00)
[2017-09-07] VITALS (9 sets, daily range): BP systolic 101–144; BP diastolic 50–61; PULSE 102–114; RESP 17–20; TEMP 97.5–98.9; O2SAT 92–96
[2017-09-07] MEDS: ACETAMINOPHEN/HYDROcodone 325 MG/5 MG TAB PO PRN ×3 (00:20→18:13)
[2017-09-07] MEDS: MORPHINE SULFATE 2 MG/ML INJ IV PUSH PRN ×5 (00:43→17:23)
[2017-09-07] MEDS: ceFAZolin 2 GM PREMIX 50 ML IV SCH ×3 (00:43→17:22)
[2017-09-07] MEDS: oxyCODONE HCL 20 MG CONTROLLED RELEASE TAB PO SCH ×2 (04:19→13:58)
[2017-09-07] MEDS: GENTAMICIN 80 MG PREMIX 100 ML IV SCH (04:58)
[2017-09-07] MEDS: PCA - TOTAL MG DILAUDID DELIVERED PER SHIFT OTHER SCH ×3 (05:08→19:25)
[2017-09-07] MEDS: LACTATED RINGER'S 1000 ML INJ 1,000 ML IV SCH ×2 (06:52→12:52)
[2017-09-07] MEDS: ENOXAPARIN SODIUM 40 MG/0.4 ML SYRINGE SQ SCH (07:41)
[2017-09-07] MEDS: INSULIN ASPART SUPPLEMENTAL SCALE SQ SCH ×4 (08:00→20:32)
[2017-09-07] MEDS: MULTIVITAMINS/MINERALS THERAPEUTIC TAB PO SCH (08:33)
[2017-09-07] MEDS: DOCUSATE SODIUM 50 MG/SENNA 8.6 MG TAB PO SCH ×2 (08:33→20:24)
[2017-09-07] MEDS: ALPRAZolam 1 MG TAB PO PRN ×2 (08:33→20:24)
[2017-09-07] MEDS: GABAPENTIN 300 MG CAP PO SCH ×2 (08:33→20:24)
[2017-09-07] MEDS: FOLIC ACID 1 MG TAB PO SCH (08:34)
[2017-09-07] MEDS: THIAMINE HCL 100 MG TAB PO SCH (08:34)
[2017-09-07] MEDS: DIVALPROEX SODIUM E.R. 250 MG TAB PO SCH (08:34)
[2017-09-07] MEDS: ESCITALOPRAM OXALATE 10 MG TAB PO SCH (08:34)
[2017-09-07] MEDS: SODIUM CHLORIDE 0.9% FLUSH 10 ML FLUSH IV FLUSH SCH ×2 (08:45→20:32)
--- NOTE | 2017-09-07 11:10 | PD.ORT.PN ---
Subjective Subjective Remarks c/o pain she is on chronic high dose pain meds Objective Vitals Vital Signs Date Time Temp Pulse Resp B/P (MAP) Pulse Ox O2 Delivery O2 Flow Rate FiO2 09/07/17 08:00 98.7 110 19 144/54 (84) 93 09/07/17 04:00 97.6 110 17 101/53 (69) 94 09/07/17 00:00 97.8 106 18 141/59 (86) 96 09/06/17 20:00 115 09/06/17 20:00 97.9 104 17 122/54 (76) 96 09/06/17 16:00 96.9 108 19 108/49 (68) 97 09/06/17 12:00 96.9 106 17 143/66 (91) 95 09/06/17 11:28 111 14 157/64 (95) 98 Nasal Cannula 2 09/06/17 11:15 114 14 150/66 (94) 98 Nasal Cannula 2 I/O 09/06/17 09/06/17 09/06/17 09/07/17 09/07/17 09/07/17 07:00 15:00 23:00 07:00 15:00 23:00 Intake Total 260 ml 1800 ml 720 ml 940 ml Output Total 100 ml Balance 260 ml 1700 ml 720 ml 940 ml Intake Oral 720 ml 940 ml IV Total 260 ml 1800 ml Output Estimated Blood Loss 100 ml # Voids 1 4 # Bowel Movements 0 Result Diagram: 09/06/17 0340 09/06/17 0340 Imaging Last [address] 09/06/17308 Signed Impressions: Service Date/Time: Wednesday, September 06, 2017 03:55 - CONCLUSION: Normal examination for a patient of this age. Shashi Espinosa MD Chest X-Ray 09/06/17308 Signed Impressions: Service Date/Time: Wednesday, September 06, 2017 03:46 - CONCLUSION: No acute disease. Shashi Espinosa MD Cervical Spine CT 09/06/17308 Signed Impressions: Service Date/Time: Wednesday, September 06, 2017 03:55 - CONCLUSION: 1. No acute bony fracture. 2. Primary degenerative changes involving the cervical spine. 3. Solid bony fusion at C4-5. Shashi Espinosa MD Pelvis X-Ray 09/06/17 0000 Signed Impressions: Service Date/Time: Wednesday, September 06, 2017 03:46 - CONCLUSION: Normal examination for a patient of this age. Shashi Espinosa MD Lower Extremity CT 09/06/17 0000 Signed Impressions: Service Date/Time: Wednesday, September 06, 2017 05:11 - CONCLUSION: Comminuted displaced fractures involving the distal one third shaft of the tibia and fibula. There is a nondisplaced intra-articular fracture involving the distal tibia at the mortise joint. There are fractures involving the distal fibula. Shashi Espinosa MD Ankle X-Ray 09/06/17 0000 Signed Impressions: Service Date/Time: Wednesday, September 06, 2017 03:00 - CONCLUSION: Displaced oblique comminuted fractures of the distal tibia and fibula. Shashi Espinosa MD Objective Remarks Right lower extremity splint in place NVI Assessment & Plan Ortho Post Op Day #: 1 (IM rodding right ribia) Problem List: Assessment and Plan Physical therapy gait training Non weight bearing Lovenox for DVT prophylaxis Continue chronic pain meds Carlitos Deutsch MD Sep 07, 2017 11:10
--- NOTE | 2017-09-07 12:01 | MP ---
cc: OKSANA VARGAS M.D. DATE OF SURGERY: 09/06/2017 PREOPERATIVE DIAGNOSIS: 1. Open right tibia and fibula shaft fracture, grade 2. 2. Closed fracture distal tibial plafond fracture with distal fibula involvement. POSTOPERATIVE DIAGNOSIS: 1. Open right tibia and fibula shaft fracture, grade 2. 2. Closed fracture distal tibial plafond fracture with distal fibula involvement. PROCEDURE 1. Right tibia and fibula irrigation and debridement of open fracture including bone debridement. 2. Right tibia and fibula open reduction, internal fixation, using Synthes 9 millimeter x 330 millimeter locking intermedullary jade, and two interfragmentary compression screws on the fibula. 3. Right ankle tibial plafond open reduction, internal fixation using Synthes 4.0 cannulated screw through percutaneous approach, anterior medial, anterior lateral distal tibia. ANESTHESIA: General. SURGEON: Oksana Vargas MD. CARPET FINISHING SUPERVISOR SURGEON: MERLYN Greenberg. ESTIMATED BLOOD LOSS: 200 cc. DRAINS: None. SPECIMEN: Bony fragments discarded. COMPLICATIONS: None known. INDICATIONS: Nicol Avila is a 57-year-old insulin-dependent diabetic female with chronic pain syndrome who sustained a fall in her house and had significant open fracture involving her right lower extremity. She also has a history of superficial sores on the distal medial tibia. The options of treatment were discussed with the patient and the recommendation was to proceed with open reduction, internal fixation and then make a decision on how to fixate the bone, external fixator versus internal fixator and then make a decision on how to close the wound or how to use wound Vac. The possibility of multiple surgeries were discussed. We discussed the possibility and risks associated with surgery including the risk of infection, nerve damage, blood vessel damage, anesthetic complication, medical complications, possible need for revision surgery, the possibility of nonunion, in her case with being diabetic and this severe of an open wound. We talked about the possible final outcome of amputation surgery. She has a good understanding. She asked appropriate questions. As well, her was present during all of this discussion. They both consented to proceed with surgical intervention. DESCRIPTION OF PROCEDURE: The patient was brought to the operating room. She was placed under general anesthetic. The right lower extremity was prepped and draped in the usual sterile fashion with Hibiclens. We proceeded with 3000 liters antibiotic pulse lavage. We curetted the end of the bone and removed blood clots and small fragments of bone and thoroughly cleaned. There was no gross contamination within the wound. After this was completed, we brought our attention to performing direct manipulation of the tibia fracture and provisionally clamped this. We did note some multiple small sores on the medial aspect of the skin. These were not full thickness wounds and they did not grossly appear infectious, but they were present and her skin was thickened. We made a lateral base incision over the fibula, irrigated this out and cleaned it, anatomically reduced it. We proceeded with placement of two interfragmentary screws. We then proceeded in accordance with preoperative planning to place anterior to posterior screws in distal tibia to stabilize the tibial plafond. There was also nondisplaced distal fibula fracture which appeared to be acceptably aligned and did not appear to require fixation at that level. After the plafond was completed, we then proceeded with a suprapatellar approach, placement of intermedullary nail and ultimately a 9 millimeter x 330 millimeter jade was placed. We did ream up to 10 millimeters to confirm good chatter of the bone and then proceeded to place our 9 millimeter jade. We placed one distal fixation interfragmentary screw and went from the anterior lateral angle to place this screw because of the questionable skin on the sores on the skin on the medial side. We used a slap hammer to back and compress the fracture site, and then we used the outrigger device for placing one proximal oblique screw with excellent fixation, hard copy x-rays throughout. AP and lateral showed the final result. We irrigated out again with antibiotic irrigation, pulse lavage and all the incisions we made we closed in layers and we used constantine on these. The open fracture site we used nylon. We used a Vac over the open fracture site with placing Vi-drape over the skin and then making little poke holes directly over the incision and then placing our wound Vac sponge and then placed another layer of Vi-drape, suctioned this at negative 125 intermittent, 6 minutes on, 2 minutes off. The patient was then placed in a posterior mold splint. She was awoken and returned to the recovery room in stable condition. MD RENEE Adorno/GEORGE /1:13 PM /11:24 AM
--- NOTE | 2017-09-07 13:00 | HHI.PR ---
Subjective Remarks seen with at bedside pain controlled voiding spontaneously motivated with PT Objective Vitals Vital Signs Date Time Temp Pulse Resp B/P (MAP) Pulse Ox O2 Delivery O2 Flow Rate FiO2 09/07/17 12:00 97.6 106 18 134/56 (82) 92 09/07/17 08:00 110 09/07/17 08:00 98.7 110 19 144/54 (84) 93 09/07/17 04:00 97.6 110 17 101/53 (69) 94 09/07/17 00:00 97.8 106 18 141/59 (86) 96 09/06/17 20:00 115 09/06/17 20:00 97.9 104 17 122/54 (76) 96 09/06/17 16:00 96.9 108 19 108/49 (68) 97 I/O 09/06/17 09/06/17 09/06/17 09/07/17 09/07/17 09/07/17 07:00 15:00 23:00 07:00 15:00 23:00 Intake Total 260 ml 1800 ml 720 ml 940 ml Output Total 100 ml 0 ml Balance 260 ml 1700 ml 720 ml 940 ml Intake Oral 720 ml 940 ml IV Total 260 ml 1800 ml Output Drainage Total 0 ml Estimated Blood Loss 100 ml # Voids 1 4 # Bowel Movements 0 Result Diagram: 09/06/1733909/06/17339 Imaging Last Impressions Head CT 09/06/17308 Signed Impressions: Service Date/Time: Wednesday, September 06, 2017 03:55 - CONCLUSION: Normal examination for a patient of this age. Shashi Espinosa MD Chest X-Ray 09/06/17308 Signed Impressions: Service Date/Time: Wednesday, September 06, 2017 03:46 - CONCLUSION: No acute disease. Shashi Espinosa MD Cervical Spine CT 09/06/17308 Signed Impressions: Service Date/Time: Wednesday, September 06, 2017 03:55 - CONCLUSION: 1. No acute bony fracture. 2. Primary degenerative changes involving the cervical spine. 3. Solid bony fusion at C4-5. Shashi Espinosa MD Tibia/Fibula X-Ray 09/06/17 0000 Signed Impressions: Service Date/Time: Wednesday, September 06, 2017 08:43 - CONCLUSION: Spot images showing surgical hardware in place in the distal tibia and fibula. Near anatomic alignment. Magdy Pop MD Pelvis X-Ray 09/06/17 0000 Signed Impressions: Service Date/Time: Wednesday, September 06, 2017 03:46 - CONCLUSION: Normal examination for a patient of this age. Shashi Espinosa MD Lower Extremity CT 09/06/17 0000 Signed Impressions: Service Date/Time: Wednesday, September 06, 2017 05:11 - CONCLUSION: Comminuted displaced fractures involving the distal one third shaft of the tibia and fibula. There is a nondisplaced intra-articular fracture involving the distal tibia at the mortise joint. There are fractures involving the distal fibula. Shashi Espinosa MD Ankle X-Ray 09/06/17 0000 Signed Impressions: Service Date/Time: Wednesday, September 06, 2017 03:00 - CONCLUSION: Displaced oblique comminuted fractures of the distal tibia and fibula. Shashi Espinosa MD Objective Remarks awake and alert, oriented x 3 anciteric lungs- clear regular rhythm abdomen soft, extremities- right LE- post op dressing in place moves toes grossly no sensory deficits Procedures 09/06- ORIF right tib/fib fracture A/P Problem List: (1) Fall ICD Code: W19.XXXA - Unspecified fall, initial encounter (2) Open fracture of right fibula and tibia ICD Code: S82.201B - Unspecified fracture of shaft of right tibia, initial encounter for open fracture type I or II; S82.401B - Unspecified fracture of shaft of right fibula, initial encounter for open fracture type I or II (3) Hypocalcemia ICD Code: E83.51 - Hypocalcemia (4) Renal insufficiency ICD Code: N28.9 - Disorder of kidney and ureter, unspecified (5) DM (diabetes mellitus) ICD Code: E11.9 - Type 2 diabetes mellitus without complications Assessment and Plan A/P: 57 years old female s/p mechanical fall - trip on a rug S/P ORIF Right Tib-Fib Fx 09/06: PT ff. Orthopedics ff, prn pain med History of Bipolar disorder. continue Depakote Hypocalcemia: - replace with po, check Vit D levels Acute Renal Insufficiency: Creatinine 1.22, no previous labs for comparison. IVF for hydration. Repeat labs DM type 2 insulin requiring :- per patient last Hemoglobin A1C was 4.0 a month ago- bid Levemer was decreased to 30 units bid - PCP - will keep on sliding scale here for now- post op History of chronic pain/Neuropathy. continue on Oxycontin bid and Gabapentin History of Bladder instability- controlled on Ditropan- will restart 4 mg hs Anemia- - no old labs for comparison.-hemodynamically stable - check iron studies . denies any history of melena or hematochezia. Advise to get screening colonosvopy, iron studies as OP DVT Prophylaxis: - Lovenox DC planning- [facility] SN[facility]- family prefers some place in [place]- -if not accepted by [facility] 3:50 pm labs back Acute anemia secondary to post op blood loss - will order Irons studies today prior to BT - no melena or hematochezia - transfuse 2 units RBC now - recheck CBC post transfusion Rafa Jane MD Sep 07, 2017 12:59
[2017-09-07] MEDS: CARISOPRODOL 350 MG TAB PO SCH (13:57)
[2017-09-07 15:29] LABS: AUTOMATED NEUTROPHIL # 3.4 TH/MM3 (1.8-7.7); BASOPHIL % 0.4 % (0.0-2.0); EOSINOPHIL # 0.1 TH/MM3 (0-0.4); EOSINOPHIL % 1.2 % (0.0-4.0); LYMPH % 22.3 % (9.0-44.0); LYMPHOCYTE # 1.1 TH/MM3 (1.0-4.8); MEAN CELL VOLUME 87.4 FL (80.0-100.0); MEAN CORPUSCULAR HEMOGLOBIN 27.6 PG (27.0-34.0); MEAN CORPUSCULAR HGB CONC 31.6 % (32.0-36.0); MEAN PLATELET VOLUME 7.3 FL (7.0-11.0); MONO % 6.1 % (0.0-8.0); MONOCYTE # 0.3 TH/MM3 (0-0.9); PLATELET COUNT 109 TH/MM3 (150-450); RED BLOOD COUNT 2.12 MIL/MM3 (4.00-5.30); RED CELL DISTRIBUTION WIDTH 16.5 % (11.6-17.2); WHITE BLOOD COUNT 4.8 TH/MM3 (4.0-11.0)
[2017-09-07 15:47] LABS: HEMATOCRIT 18.5 % (35.0-46.0); HEMOGLOBIN 5.8 GM/DL (11.6-15.3)
[2017-09-07 16:04] LABS: ALBUMIN 2.2 GM/DL (3.4-5.0); BICARBONATE 29.1 MEQ/L (21.0-32.0); CALCIUM 6.9 MG/DL (8.5-10.1); CALCIUM-PROTEIN CORRECTED 7.7 MG/DL (8.5-10.1); CREATININE 1.22 MG/DL (0.50-1.00); TOTAL BILIRUBIN ADULT 0.1 MG/DL (0.2-1.0); TOTAL PROTEIN 5.6 GM/DL (6.4-8.2)
[2017-09-07] MEDS: GENTAMICIN INJ 80 MG in SODIUM CHLORIDE 0.9% INJ 100 ML IV SCH ×2 (16:11→20:24)
[2017-09-07 18:21] LABS: % SATURATION IRON PROFILE 5.7 % (20-50); IRON (FE) 19 MCG/DL (50-170); TOTAL IRON BINDING CAPACITY 332 MCG/DL (250-450)
[2017-09-07 18:24] LABS: FERRITIN 16 NG/ML (8-252)
[2017-09-07] MEDS: TOLTERODINE TARTRATE 4 MG CAP LA PO SCH (20:24)
[2017-09-08] VITALS (14 sets, daily range): BP systolic 127–155; BP diastolic 57–86; PULSE 84–108; RESP 16–20; TEMP 97.2–99.4; O2SAT 92–96
[2017-09-08] MEDS: CARISOPRODOL 350 MG TAB PO SCH ×4 (00:48→21:22)
[2017-09-08] MEDS: oxyCODONE HCL 20 MG CONTROLLED RELEASE TAB PO SCH ×2 (00:48→06:00)
[2017-09-08] MEDS: ceFAZolin 2 GM PREMIX 50 ML IV SCH ×3 (02:07→16:00)
[2017-09-08] MEDS: LACTATED RINGER'S 1000 ML INJ 1,000 ML IV SCH ×2 (02:07→12:52)
[2017-09-08] MEDS: PCA - TOTAL MG DILAUDID DELIVERED PER SHIFT OTHER SCH (06:00)
[2017-09-08] MEDS: GENTAMICIN INJ 80 MG in SODIUM CHLORIDE 0.9% INJ 100 ML IV SCH ×3 (06:40→23:11)
[2017-09-08] MEDS: ENOXAPARIN SODIUM 40 MG/0.4 ML SYRINGE SQ SCH (06:41)
[2017-09-08] MEDS: INSULIN ASPART SUPPLEMENTAL SCALE SQ SCH ×4 (08:00→23:11)
[2017-09-08] MEDS: THIAMINE HCL 100 MG TAB PO SCH (08:29)
[2017-09-08] MEDS: ESCITALOPRAM OXALATE 10 MG TAB PO SCH (08:29)
[2017-09-08] MEDS: GABAPENTIN 300 MG CAP PO SCH ×2 (08:29→21:23)
[2017-09-08] MEDS: DOCUSATE SODIUM 50 MG/SENNA 8.6 MG TAB PO SCH ×2 (08:30→21:22)
[2017-09-08] MEDS: FOLIC ACID 1 MG TAB PO SCH (08:30)
[2017-09-08] MEDS: DIVALPROEX SODIUM E.R. 250 MG TAB PO SCH (08:30)
[2017-09-08] MEDS: SODIUM CHLORIDE 0.9% FLUSH 10 ML FLUSH IV FLUSH SCH ×2 (08:30→23:12)
[2017-09-08] MEDS: MULTIVITAMINS/MINERALS THERAPEUTIC TAB PO SCH (08:30)
[2017-09-08 09:28] LABS: HEMATOCRIT 26.5 % (35.0-46.0); HEMOGLOBIN 8.9 GM/DL (11.6-15.3); MEAN CELL VOLUME 86.4 FL (80.0-100.0); MEAN CORPUSCULAR HEMOGLOBIN 28.9 PG (27.0-34.0); MEAN CORPUSCULAR HGB CONC 33.4 % (32.0-36.0); MEAN PLATELET VOLUME 7.5 FL (7.0-11.0); PLATELET COUNT 140 TH/MM3 (150-450); RED BLOOD COUNT 3.07 MIL/MM3 (4.00-5.30); RED CELL DISTRIBUTION WIDTH 16.4 % (11.6-17.2); WHITE BLOOD COUNT 6.7 TH/MM3 (4.0-11.0)
[2017-09-08] MEDS: MORPHINE SULFATE 2 MG/ML INJ IV PUSH PRN (09:57)
[2017-09-08] MEDS: ALPRAZolam 1 MG TAB PO PRN (12:18)
--- NOTE | 2017-09-08 13:57 | HHI.PR ---
Subjective Remarks d/w staff nurseasking for pain meds all at the same time- then gets sleepy no complains no headahces nausea or vomiting Objective Vitals Vital Signs Date Time Temp Pulse Resp B/P (MAP) Pulse Ox O2 Delivery O2 Flow Rate FiO2 09/08/17 08:00 97.3 93 18 133/69 (90) 96 09/08/17 04:00 92 09/08/17 03:30 97.2 96 19 129/60 93 09/08/17 03:20 97.3 96 16 127/57 93 09/08/17 03:10 98.5 96 20 133/66 94 09/08/17 02:15 98.3 99 18 144/65 92 09/08/17 00:00 98 09/07/17 22:55 97.8 103 17 126/61 92 09/07/17 22:45 98.0 102 18 120/56 94 09/07/17 22:35 98.9 105 20 120/50 92 09/07/17 20:00 114 09/07/17 20:00 97.5 111 18 130/59 (82) 92 09/07/17 16:13 98.4 110 18 133/55 (81) 93 I/O 09/07/17 09/07/17 09/07/17 09/08/17 09/08/17 09/08/17 07:00 15:00 23:00 07:00 15:00 23:00 Intake Total 940 ml 1445 ml 1170 ml Balance 940 ml 1445 ml 1170 ml Intake Oral 940 ml 1440 ml 480 ml Packed Cells 675 ml Blood Product IV Normal Saline Flush 5 ml 15 ml # Voids 4 12 4 # Bowel Movements 0 0 Result Diagram: 09/08/17 0850 09/07/17 1449 Imaging Last Impressions Head CT 09/06/17308 Signed Impressions: Service Date/Time: Wednesday, September 06, 2017 03:55 - CONCLUSION: Normal examination for a patient of this age. Shashi Espinosa MD Chest X-Ray 09/06/17308 Signed Impressions: Service Date/Time: Wednesday, September 06, 2017 03:46 - CONCLUSION: No acute disease. Shashi Espinosa MD Cervical Spine CT 09/06/17308 Signed Impressions: Service Date/Time: Wednesday, September 06, 2017 03:55 - CONCLUSION: 1. No acute bony fracture. 2. Primary degenerative changes involving the cervical spine. 3. Solid bony fusion at C4-5. Shashi Espinosa MD Tibia/Fibula X-Ray 09/06/17 0000 Signed Impressions: Service Date/Time: Wednesday, September 06, 2017 08:43 - CONCLUSION: Spot images showing surgical hardware in place in the distal tibia and fibula. Near anatomic alignment. Magdy Pop MD Pelvis X-Ray 09/06/17 0000 Signed Impressions: Service Date/Time: Wednesday, September 06, 2017 03:46 - CONCLUSION: Normal examination for a patient of this age. Shashi Espinosa MD Lower Extremity CT 09/06/17 0000 Signed Impressions: Service Date/Time: Wednesday, September 06, 2017 05:11 - CONCLUSION: Comminuted displaced fractures involving the distal one third shaft of the tibia and fibula. There is a nondisplaced intra-articular fracture involving the distal tibia at the mortise joint. There are fractures involving the distal fibula. Shashi Espinosa MD Ankle X-Ray 09/06/17 0000 Signed Impressions: Service Date/Time: Wednesday, September 06, 2017 03:00 - CONCLUSION: Displaced oblique comminuted fractures of the distal tibia and fibula. Shashi Espinosa MD Objective Remarks awake and alert, oriented x 3 anciteric lungs- clear regular rhythm abdomen soft, extremities- right LE- post op dressing in place moves toes grossly no sensory deficits Procedures 09/06- ORIF right tib/fib fracture Urinary Catheter: Yes Assessment to: Continue Rosa insert reason: Prolonged Immobilization Date of Insertion: Sep 07, 2017 A/P Problem List: (1) Fall ICD Code: W19.XXXA - Unspecified fall, initial encounter (2) Open fracture of right fibula and tibia ICD Code: S82.201B - Unspecified fracture of shaft of right tibia, initial encounter for open fracture type I or II; S82.401B - Unspecified fracture of shaft of right fibula, initial encounter for open fracture type I or II (3) Hypocalcemia ICD Code: E83.51 - Hypocalcemia (4) Renal insufficiency ICD Code: N28.9 - Disorder of kidney and ureter, unspecified (5) DM (diabetes mellitus) ICD Code: E11.9 - Type 2 diabetes mellitus without complications Assessment and Plan A/P: 57 years old female s/p mechanical fall - trip on a rug S/P ORIF Right Tib-Fib Fx 09/06: PT ff. Orthopedics ff, History of chronic pain- will try to regulate- patient asleep most of the time- asing for pain all at the same time Decrease Oxcyontin to 30 mg po q 12 [place] 5/325 1 tab po q 4 prn for pain 4-10 DC IV Morphine d/w staff nurse Acute anemia- due to post op on top of chronic anemia Iron deficeincy H and H up- S/P blood products startsed on MVI Advise to get screening colonosocpy as OP History of Bipolar disorder. continue Depakote. Decrease Xanax to 1 mg po q 12 prn for anxiety Hypocalcemia: - replace with po, check Vit D levels Calcium + vit D Acute Renal Insufficiency: Creatinine 1.22, no previous labs for comparison. IVF for hydration. Repeat labs DM type 2 insulin requiring :- per patient last Hemoglobin A1C was 4.0 a month ago- bid Levemer was decreased to 30 units bid - PCP - will keep on sliding scale here for now- - good readings History of chronic pain/Neuropathy. continue on Oxycontin bid and Gabapentin History of Bladder instability- controlled on Ditropan- will restart 4 mg hs DVT Prophylaxis: - Lovenox DC planning- [facility] SN[facility]- family prefers some place in [place]- -if not accepted by [facility] 3:50 pm labs back Acute anemia secondary to post op blood loss - will order Irons studies today prior to BT - no melena or hematochezia - transfuse 2 units RBC now - recheck CBC post transfusion Rafa Jane MD Sep 08, 2017 13:57
[2017-09-08] MEDS ORDERED: oxyCODONE HCL 20 MG CONTROLLED RELEASE TAB PO SCH (14:00)
[2017-09-08 14:34] LABS: BICARBONATE 28.3 MEQ/L (21.0-32.0); CALCIUM 7.5 MG/DL (8.5-10.1); CREATININE 1.07 MG/DL (0.50-1.00)
[2017-09-08] MEDS: ACETAMINOPHEN/HYDROcodone 325 MG/5 MG TAB PO PRN ×2 (17:08→18:58)
--- NOTE | 2017-09-08 19:30 | PD.ORT.PN ---
Subjective Subjective Remarks Patient c/o RLE pain. Objective Vitals Vital Signs Date Time Temp Pulse Resp B/P (MAP) Pulse Ox O2 Delivery O2 Flow Rate FiO2 09/08/17 17:06 98 09/08/17 16:00 98.1 89 18 130/75 (93) 96 09/08/17 12:00 97.5 84 17 133/70 (91) 96 09/08/17 08:00 97.3 93 18 133/69 (90) 96 09/08/17 04:00 92 09/08/17 03:30 97.2 96 19 129/60 93 09/08/17 03:20 97.3 96 16 127/57 93 09/08/17 03:10 98.5 96 20 133/66 94 09/08/17 02:15 98.3 99 18 144/65 92 09/08/17 00:00 98 09/07/17 22:55 97.8 103 17 126/61 92 09/07/17 22:45 98.0 102 18 120/56 94 09/07/17 22:35 98.9 105 20 120/50 92 09/07/17 20:00 114 09/07/17 20:00 97.5 111 18 130/59 (82) 92 I/O 09/07/17 09/07/17 09/07/17 09/08/17 09/08/17 09/08/17 07:00 15:00 23:00 07:00 15:00 23:00 Intake Total 940 ml 1445 ml 1170 ml 720 ml 150 ml Output Total 800 ml Balance 940 ml 1445 ml 1170 ml -80 ml 150 ml Intake Oral 940 ml 1440 ml 480 ml 720 ml IV Total 150 ml Packed Cells 675 ml Blood Product IV Normal Saline Flush 5 ml 15 ml Output Urine Total 800 ml # Voids 4 12 4 3 # Bowel Movements 0 0 Result Diagram: 09/08/17 0850 09/08/17 1250 Imaging Last [address] 09/06/17308 Signed Impressions: Service Date/Time: Wednesday, September 06, 2017 03:55 - CONCLUSION: Normal examination for a patient of this age. Shashi Espinosa MD Chest X-Ray 09/06/17308 Signed Impressions: Service Date/Time: Wednesday, September 06, 2017 03:46 - CONCLUSION: No acute disease. Shashi Espinosa MD Cervical Spine CT 09/06/17 0309 Signed Impressions: Service Date/Time: Wednesday, September 06, 2017 03:55 - CONCLUSION: 1. No acute bony fracture. 2. Primary degenerative changes involving the cervical spine. 3. Solid bony fusion at C4-5. Shashi Espinosa MD Pelvis X-Ray 09/06/17 0000 Signed Impressions: Service Date/Time: Wednesday, September 06, 2017 03:46 - CONCLUSION: Normal examination for a patient of this age. Shashi Espinosa MD Lower Extremity CT 09/06/17 0000 Signed Impressions: Service Date/Time: Wednesday, September 06, 2017 05:11 - CONCLUSION: Comminuted displaced fractures involving the distal one third shaft of the tibia and fibula. There is a nondisplaced intra-articular fracture involving the distal tibia at the mortise joint. There are fractures involving the distal fibula. Shashi Espinosa MD Ankle X-Ray 09/06/17 0000 Signed Impressions: Service Date/Time: Wednesday, September 06, 2017 03:00 - CONCLUSION: Displaced oblique comminuted fractures of the distal tibia and fibula. Shashi Espinosa MD Objective Remarks Right lower extremity wound vac intact splint in place NVI Assessment & Plan Assessment and Plan Physical therapy gait training Non weight bearing to ROBIN Felton for DVT prophylaxis Continue chronic pain meds D/C planning Roby Palacios Sep 08, 2017 19:30
[2017-09-08] MEDS: CALCIUM/VITAMIN D 250 MG/125 U TAB PO SCH (21:22)
[2017-09-08] MEDS: oxyCODONE HCL 10 MG CONTROLLED RELEASE TAB PO SCH (21:23)
[2017-09-08] MEDS: TOLTERODINE TARTRATE 4 MG CAP LA PO SCH (21:23)
[2017-09-09] VITALS (8 sets, daily range): BP systolic 120–196; BP diastolic 59–82; PULSE 90–109; RESP 17–20; TEMP 97.6–99.4; O2SAT 93–100
[2017-09-09] MEDS: ceFAZolin 2 GM PREMIX 50 ML IV SCH ×3 (00:31→17:41)
[2017-09-09] MEDS: ALPRAZolam 1 MG TAB PO PRN ×2 (00:31→13:54)
[2017-09-09] MEDS: CARISOPRODOL 350 MG TAB PO SCH ×3 (06:15→21:56)
[2017-09-09] MEDS: GENTAMICIN INJ 80 MG in SODIUM CHLORIDE 0.9% INJ 100 ML IV SCH ×3 (06:16→21:56)
[2017-09-09] MEDS: ENOXAPARIN SODIUM 40 MG/0.4 ML SYRINGE SQ SCH (06:16)
[2017-09-09] MEDS: INSULIN ASPART SUPPLEMENTAL SCALE SQ SCH ×4 (08:00→20:29)
[2017-09-09] MEDS: CALCIUM/VITAMIN D 250 MG/125 U TAB PO SCH ×2 (08:23→20:28)
[2017-09-09] MEDS: MULTIVITAMINS/MINERALS THERAPEUTIC TAB PO SCH (08:23)
[2017-09-09] MEDS: GABAPENTIN 300 MG CAP PO SCH ×2 (08:24→20:28)
[2017-09-09] MEDS: DOCUSATE SODIUM 50 MG/SENNA 8.6 MG TAB PO SCH ×2 (08:24→20:29)
[2017-09-09] MEDS: ESCITALOPRAM OXALATE 10 MG TAB PO SCH (08:24)
[2017-09-09] MEDS: oxyCODONE HCL 10 MG CONTROLLED RELEASE TAB PO SCH ×2 (08:24→20:29)
[2017-09-09] MEDS: FOLIC ACID 1 MG TAB PO SCH (08:24)
[2017-09-09] MEDS: THIAMINE HCL 100 MG TAB PO SCH (08:24)
[2017-09-09] MEDS: DIVALPROEX SODIUM E.R. 250 MG TAB PO SCH (08:25)
[2017-09-09] MEDS: SODIUM CHLORIDE 0.9% FLUSH 10 ML FLUSH IV FLUSH SCH ×2 (08:25→20:29)
[2017-09-09] MEDS: LACTATED RINGER'S 1000 ML INJ 1,000 ML IV SCH ×2 (08:26→18:52)
[2017-09-09] MEDS ORDERED: OXYC-103 PO (13:34)
[2017-09-09] MEDS ORDERED: CALC250 PO (13:34)
[2017-09-09] MEDS ORDERED: NOVOLOGSS SQ (13:34)
[2017-09-09] MEDS ORDERED: HYDR-3516 PO (13:34)
[2017-09-09] MEDS ORDERED: PERI PO (13:34)
[2017-09-09] MEDS ORDERED: DETR4CAP PO (13:34)
[2017-09-09] MEDS ORDERED: CARI350T25 PO (13:34)
[2017-09-09] MEDS ORDERED: XANA1TAB2 PO (13:34)
[2017-09-09] MEDS ORDERED: ENOX40P SQ (13:34)
--- NOTE | 2017-09-09 13:39 | HHI.DS ---
Discharge Summary Admission Date Sep 06, 2017 at 04:28 Discharge Date: Sep 09, 2017 Admitting Diagnosis Open comminuted R tib/fib fracture; DM; chronic pain (1) Fall ICD Code: W19.XXXA - Unspecified fall, initial encounter Diagnosis: Principal (2) Open fracture of right fibula and tibia ICD Code: S82.201B - Unspecified fracture of shaft of right tibia, initial encounter for open fracture type I or II; S82.401B - Unspecified fracture of shaft of right fibula, initial encounter for open fracture type I or II Diagnosis: Principal (3) Hypocalcemia ICD Code: E83.51 - Hypocalcemia Diagnosis: Secondary (4) Renal insufficiency ICD Code: N28.9 - Disorder of kidney and ureter, unspecified Diagnosis: Secondary (5) DM (diabetes mellitus) ICD Code: E11.9 - Type 2 diabetes mellitus without complications Diagnosis: Secondary (6) Anemia ICD Code: D64.9 - Anemia, unspecified Diagnosis: Principal Procedures 09/06- ORIF right tib/fib fracture Brief History - From Admission This is a 57-year-old female with a PMH of HTN, Chronic Back Pain and DM who is brought to the ER by EMS secondary to fall w/ right leg pain. Pt w/ mechanical fall from standing position, no head trauma or LOC reported. Obvious open right leg injury. S/p Morphine 10mg IV prior to arrival, pt poor historian due to medication, however reports severe 10/10 pain, constant, sharp, non- radiating. On arrival, BP 127/75, HR 103, O2 sat 95% on 2L NC, Afebrile. CBC essentially unremarkable. Creatinine 1.22, previous labs for comparison. Calcium 7.2. INR 1.1. Alcohol negative. CT Head normal. CT C-spine with no acute fracture. CXR negative. Pelvic X-ray normal. Ankle X-ray with displaced oblique comminuted fractures of distal tibia and fibula. S/p splint in ER. Dr. Deutsch consulted by ER physician, plan is for surgical intervention. CBC/BMP: 09/08/17 0850 09/08/17 1250 Significant Findings Laboratory Tests Test 09/06/17 16:05 09/07/17 14:49 09/08/17 08:50 09/08/17 12:50 Urine Opiates Screen POS (NEG) Urine Benzodiazepines Screen POS (NEG) Red Blood Count 2.12 MIL/MM3 (4.00-5.30) 3.07 MIL/MM3 (4.00-5.30) Hemoglobin 5.8 GM/DL (11.6-15.3) 8.9 GM/DL (11.6-15.3) Hematocrit 18.5 % (35.0-46.0) 26.5 % (35.0-46.0) Mean Corpuscular Hemoglobin Concent 31.6 % (32.0-36.0) Platelet Count 109 TH/MM3 (150-450) 140 TH/MM3 (150-450) Creatinine 1.22 MG/DL (0.50-1.00) 1.07 MG/DL (0.50-1.00) Random Glucose 240 MG/DL (74-106) 192 MG/DL (74-106) Total Protein 5.6 GM/DL (6.4-8.2) Albumin 2.2 GM/DL (3.4-5.0) Calcium Level 6.9 MG/DL (8.5-10.1) 7.5 MG/DL (8.5-10.1) Alkaline Phosphatase 183 U/L (45-117) Total Bilirubin 0.1 MG/DL (0.2-1.0) Estimat Glomerular Filtration Rate 45 ML/MIN (>89) 53 ML/MIN (>89) Protein Corrected Calcium 7.7 MG/DL (8.5-10.1) Iron Level 19 MCG/DL (50-170) Percent Iron Saturation 5.7 % (20-50) 25-Hydroxy Vitamin D Total 4.9 ng/ML (30-100) Imaging Last Impressions Head CT 09/06/17308 Signed Impressions: Service Date/Time: Wednesday, September 06, 2017 03:55 - CONCLUSION: Normal examination for a patient of this age. Shashi Espinosa MD Chest X-Ray 09/06/17308 Signed Impressions: Service Date/Time: Wednesday, September 06, 2017 03:46 - CONCLUSION: No acute disease. Shashi Espinosa MD Cervical Spine CT 09/06/17 0309 Signed Impressions: Service Date/Time: Wednesday, September 06, 2017 03:55 - CONCLUSION: 1. No acute bony fracture. 2. Primary degenerative changes involving the cervical spine. 3. Solid bony fusion at C4-5. Shashi Espinosa MD Tibia/Fibula X-Ray 09/06/17 0000 Signed Impressions: Service Date/Time: Wednesday, September 06, 2017 08:43 - CONCLUSION: Spot images showing surgical hardware in place in the distal tibia and fibula. Near anatomic alignment. Magdy Pop MD Pelvis X-Ray 09/06/17 0000 Signed Impressions: Service Date/Time: Wednesday, September 06, 2017 03:46 - CONCLUSION: Normal examination for a patient of this age. Shashi Espinosa MD Lower Extremity CT 09/06/17 0000 Signed Impressions: Service Date/Time: Wednesday, September 06, 2017 05:11 - CONCLUSION: Comminuted displaced fractures involving the distal one third shaft of the tibia and fibula. There is a nondisplaced intra-articular fracture involving the distal tibia at the mortise joint. There are fractures involving the distal fibula. Shashi Espinosa MD Ankle X-Ray 09/06/17 0000 Signed Impressions: Service Date/Time: Wednesday, September 06, 2017 03:00 - CONCLUSION: Displaced oblique comminuted fractures of the distal tibia and fibula. Shashi Espinosa MD PE at Discharge GENERAL: in NAD NECK: Supple, trachea midline. No JVD or lymphadenopathy. CARDIOVASCULAR: Regular rate and rhythm without murmurs, gallops, or rubs. RESPIRATORY: Breath sounds equal bilaterally. No accessory muscle use. GASTROINTESTINAL: Abdomen soft, non-tender, nondistended. MUSCULOSKELETAL: No cyanosis, or edema. extremities- right LE- post op dressing in place BACK: Nontender without obvious deformity. No CVA tenderness. Pt update on day of discharge Follow-up for surgery Patient upset that IV morphine was discontinued. Per patient's nurse and progress note patient was very sedated on IV morphine and she wanted all her sedating medication at once. Otherwise she has no other complaints. Discussed case with ANTELMO Palacios who stated patient can be discharge and recommended Lovenox. \Discussed case with patient's nurse he had no issues. Patient seemed the bedside with physical therapist present and her . Hospital Course Patient presented with a chemical fall secondary to tripping over a rug in which she had a right tib-fib fracture. Patient had ORIF on 09/06/2017. During her hospital course she was given too much pain medication in which she became sedated and IV thing has to be discontinued. Afterwards patient was much more awake and alert and was able to engage. She also had postoperative acute anemia also was given blood transfusion in which she responded properly. She had no active bleeding. Patient did well during hospital course she was able to tolerate oral intake and had a bowel movement. Pt Condition on Discharge: Stable Discharge Disposition: Discharge to SNF Discharge Time: > 30 minutes Discharge Instructions DIET: Follow Instructions for: Diabetic Diet Activities you can perform: See Additionl Instruction Other Activity Instructions: per Orthopedic surgeon Follow up Referrals: Orthopedics - 2 Weeks with Carlitos Deutsch MD SNF/SNF/ - Daily New Medications: Alprazolam (Xanax) 1 Mg Tab 1 MG PO Q12HR PRN for ANXIETY, #10 TAB 0 Refills Calcium/Vitamin D (Oyster Shell 250 mg + Vit D Tb) 250 Mg Calcium (625 Mg)-125 Unit Tablet 250 MG PO Q12HR for calcium, #60 TAB 0 Refills Carisoprodol (Carisoprodol) 350 Mg Tablet 350 MG PO Q8HR for spasm, #28 TAB 0 Refills Enoxaparin Inj (Lovenox Inj) 40 Mg/0.4 Ml Syr 40 MG SQ Q24H for DVT prophylaxis , #30 INJECTION 0 Refills Hydrocodone/Acetaminophen (Hydrocodone-Acetamin 5-325 mg) 5 Mg-325 Mg Tablet 1 TAB PO Q4H PRN for PAIN SCALE 4 TO 10, #20 TAB 0 Refills Insulin Aspart Inj (Novolog Inj) 100 Unit/Ml Inj 1 UNIT SQ ACHS SLIDING SCALE for diabetes, #1 INJECTION 0 Refills Oxycodone ER (Oxycontin) 10 Mg Tab 30 MG PO Q12HR for chronic pain, #30 TAB 0 Refills Sennosides-Docusate Sodium (Gnp Senna Plus 8.6-50 mg) 8.6 Mg-50 Mg Tab 1 TAB PO BID for constipation, #30 TAB 0 Refills Tolterodine ER (Detrol LA) 4 Mg Cap 4 MG PO HS for overactive bladder, #30 CAP 0 Refills Continued Medications: Divalproex ER (Depakote ER) 250 Mg Aisha 250 MG PO DAILY for Control Seizures, #30 TAB 0 Refills Escitalopram (Lexapro) 5 Mg Tab 5 MG PO DAILY, #30 TAB 0 Refills Gabapentin (Neurontin) 600 Mg Tab 600 MG PO BID, #60 TAB 0 Refills Discontinued Medications: Alprazolam (Xanax) 2 Mg Tab 2 MG PO BID PRN for ANXIETY, TAB 0 Refills Carisoprodol (Soma) 250 Mg Tab 250 MG PO TID PRN for PAIN, TAB 0 Refills Insulin Human Isophane-Regular 70-30 Inj (Novolin 70-30 Inj) 1,000 Unit/10 Ml Vial 35 UNITS SQ BID for Blood Sugar Management, ML 0 Refills Meloxicam (Meloxicam) 7.5 Mg Tab 7.5 MG PO DAILY for Arthritis Pain, TAB 0 Refills Oxycodone ER (Oxycontin) 60 Mg Tab 60 MG PO TID for Pain Management, TAB 0 Refills Kaelyn Rasmussen MD Sep 09, 2017 13:39
[2017-09-09] MEDS: ACETAMINOPHEN/HYDROcodone 325 MG/5 MG TAB PO PRN ×2 (13:55→21:56)
--- NOTE | 2017-09-09 14:06 | PD.ORT.PN ---
Subjective Subjective Remarks Patient participating with PT. Ambulating with walker. Spouse at bedside. Objective Vitals Vital Signs Date Time Temp Pulse Resp B/P (MAP) Pulse Ox O2 Delivery O2 Flow Rate FiO2 09/09/17 11:45 97.6 104 19 159/79 (105) 93 09/09/17 08:40 103 09/09/17 07:44 97.8 109 19 196/82 (120) 94 09/09/17 04:57 97.8 99 20 177/76 (109) 100 09/09/17 04:18 92 09/08/17 23:57 95 09/08/17 23:45 98.5 98 19 155/74 (101) 92 09/08/17 20:26 106 09/08/17 20:00 99.4 108 19 154/86 (108) 93 09/08/17 17:06 98 09/08/17 16:00 98.1 89 18 130/75 (93) 96 I/O 09/08/17 09/08/17 09/08/17 09/09/17 09/09/17 09/09/17 07:00 15:00 23:00 07:00 15:00 23:00 Intake Total 1170 ml 720 ml 510 ml 240 ml Output Total 800 ml Balance 1170 ml -80 ml 510 ml 240 ml Intake Oral 480 ml 720 ml 360 ml 240 ml IV Total 150 ml Packed Cells 675 ml Blood Product IV Normal Saline Flush 15 ml Output Urine Total 800 ml # Voids 4 3 4 5 # Bowel Movements 0 0 3 Result Diagram: 09/08/17 0850 09/08/17 1250 Imaging Last [address] 09/06/17308 Signed Impressions: Service Date/Time: Wednesday, September 06, 2017 03:55 - CONCLUSION: Normal examination for a patient of this age. Shashi Espinosa MD Chest X-Ray 09/06/17308 Signed Impressions: Service Date/Time: Wednesday, September 06, 2017 03:46 - CONCLUSION: No acute disease. Shashi Espinosa MD Cervical Spine CT 09/06/17308 Signed Impressions: Service Date/Time: Wednesday, September 06, 2017 03:55 - CONCLUSION: 1. No acute bony fracture. 2. Primary degenerative changes involving the cervical spine. 3. Solid bony fusion at C4-5. Shashi Espinosa MD Pelvis X-Ray 09/06/17 0000 Signed Impressions: Service Date/Time: Wednesday, September 06, 2017 03:46 - CONCLUSION: Normal examination for a patient of this age. Shashi Espinosa MD Lower Extremity CT 09/06/17 0000 Signed Impressions: Service Date/Time: Wednesday, September 06, 2017 05:11 - CONCLUSION: Comminuted displaced fractures involving the distal one third shaft of the tibia and fibula. There is a nondisplaced intra-articular fracture involving the distal tibia at the mortise joint. There are fractures involving the distal fibula. Shashi Espinosa MD Ankle X-Ray 09/06/17 0000 Signed Impressions: Service Date/Time: Wednesday, September 06, 2017 03:00 - CONCLUSION: Displaced oblique comminuted fractures of the distal tibia and fibula. Shashi Espinosa MD Objective Remarks Right lower extremity wound vac removed sutures and constantine in place multiple incisions well approximated no signs of infection noted NVI Assessment & Plan Assessment and Plan POD #3 Physical therapy gait training Non weight bearing to RLE Lovenox for DVT prophylaxis Continue chronic pain meds Orthopedically stable for discharge D/C planning - rehab F/U in [address] Deutsch or MERLYN in office Roby Palacios Sep 09, 2017 14:06
[2017-09-09] MEDS: TOLTERODINE TARTRATE 4 MG CAP LA PO SCH (20:28)
[2017-09-10] MEDS: ceFAZolin 2 GM PREMIX 50 ML IV SCH ×2 (01:21→08:13)
[2017-09-10] MEDS: diphenhydrAMINE HCL 25 MG CAP PO PRN ×2 (01:21→10:06)
[2017-09-10] MEDS: ALPRAZolam 1 MG TAB PO PRN ×2 (01:25→13:36)
[2017-09-10] MEDS: ACETAMINOPHEN/HYDROcodone 325 MG/5 MG TAB PO PRN ×4 (02:01→13:59)
[2017-09-10] MEDS: LACTATED RINGER'S 1000 ML INJ 1,000 ML IV SCH ×2 (04:52→09:45)
[2017-09-10] MEDS: GENTAMICIN INJ 80 MG in SODIUM CHLORIDE 0.9% INJ 100 ML IV SCH (06:07)
[2017-09-10] MEDS: CARISOPRODOL 350 MG TAB PO SCH ×2 (06:38→12:52)
[2017-09-10] MEDS: ONDANSETRON HCL 4 MG/2 ML VIAL IVP PRN ×2 (06:38→10:02)
[2017-09-10] MEDS: ENOXAPARIN SODIUM 40 MG/0.4 ML SYRINGE SQ SCH (07:24)
[2017-09-10 08:00] VITALS: BP 149/76; PULSE 95; RESP 17; TEMP 96.2; O2SAT 95
[2017-09-10] MEDS: INSULIN ASPART SUPPLEMENTAL SCALE SQ SCH ×2 (08:00→10:46)
[2017-09-10] MEDS: FOLIC ACID 1 MG TAB PO SCH (08:12)
[2017-09-10] MEDS: THIAMINE HCL 100 MG TAB PO SCH (08:12)
[2017-09-10] MEDS: ESCITALOPRAM OXALATE 10 MG TAB PO SCH (08:12)
[2017-09-10] MEDS: oxyCODONE HCL 10 MG CONTROLLED RELEASE TAB PO SCH (08:12)
[2017-09-10] MEDS: GABAPENTIN 300 MG CAP PO SCH (08:12)
[2017-09-10] MEDS: DOCUSATE SODIUM 50 MG/SENNA 8.6 MG TAB PO SCH (08:12)
[2017-09-10] MEDS: CALCIUM/VITAMIN D 250 MG/125 U TAB PO SCH (08:13)
[2017-09-10] MEDS: MULTIVITAMINS/MINERALS THERAPEUTIC TAB PO SCH (08:13)
[2017-09-10] MEDS: SODIUM CHLORIDE 0.9% FLUSH 10 ML FLUSH IV FLUSH SCH (08:13)
[2017-09-10] MEDS: DIVALPROEX SODIUM E.R. 250 MG TAB PO SCH (08:13)
[2017-09-10] MEDS ORDERED: OXYC-428 PO (08:50)
--- NOTE | 2017-09-10 08:57 | HHI.PR ---
Subjective Remarks f/u for surgery and placement patient unable to go yesterday due to wrong primary insurance so reauthorization had to be sent yesterday. Patient very emotional and stated that she does not understand why her home dosage of oxycodone was decreased by half. She stated that she is on 60 mg 3 times a day. She stated that she gets it from the medicine shop and he went and gave me the number. Patient stated that she's been in severe pain and has not been able to sleep last night. She stated that she understands not getting the IV morphine but she said that she's been on oxycodone for very long time. Otherwise she has no other complaints. Objective Vitals Vital Signs Date Time Temp Pulse Resp B/P (MAP) Pulse Ox O2 Delivery O2 Flow Rate FiO2 09/09/17 23:50 98.6 90 17 151/76 (101) 93 09/09/17 19:45 98.3 91 17 120/62 (81) 97 09/09/17 15:55 99.4 90 19 123/59 (80) 95 09/09/17 11:45 97.6 104 19 159/79 (105) 93 I/O 09/09/17 09/09/17 09/09/17 09/10/17 09/10/17 09/10/17 07:00 15:00 23:00 07:00 15:00 23:00 Intake Total 240 ml 950 ml 360 ml 120 ml Balance 240 ml 950 ml 360 ml 120 ml Intake Oral 240 ml 950 ml 360 ml 120 ml # Voids 5 3 3 4 # Bowel Movements 3 2 0 0 Result Diagram: 09/08/17 0850 09/08/17 1250 Objective Remarks GENERAL: in NAD NECK: Supple, trachea midline. No JVD or lymphadenopathy. CARDIOVASCULAR: Regular rate and rhythm without murmurs, gallops, or rubs. RESPIRATORY: Breath sounds equal bilaterally. No accessory muscle use. GASTROINTESTINAL: Abdomen soft, non-tender, nondistended. MUSCULOSKELETAL: No cyanosis, or edema. extremities- right LE- post op dressing in place BACK: Nontender without obvious deformity. No CVA tenderness. Procedures 09/06- ORIF right tib/fib fracture Medications and IVs Current Medications Cefazolin Sodium/ Dextrose 50 ml @ As Directed STK-MED ONCE .ROUTE ; Start 09/06 at 03:06; Stop 09/06/17 at 03:07; Status DC Gentamicin Sulfate/Sodium Chloride 100 ml @ As Directed STK-MED ONCE .ROUTE ; Start 09/06/17 at 03:06; Stop 09/06/17 at 03:07; Status DC Cefazolin Sodium/ Dextrose 50 ml @ 100 mls/hr STAT ONCE IV Last administered on 09/06/17at 03:52; Start 09/06/17 at 03:15; Stop 09/06/17 at 03:44; Status DC Ondansetron HCl (Zofran Inj) 4 mg ONCE ONCE IV PUSH Last administered on at 03:52; Start 09/06/17 at 03:15; Stop 09/06/17 at 03:16; Status DC Sodium Chloride (NS Flush) 2 ml UNSCH PRN IVF FLUSH AFTER USING IV ACCESS; Start 09/06/17 at 03:15; Stop 09/06/17 at 04:37; Status DC Gentamicin Sulfate/Sodium Chloride 100 ml @ 200 mls/hr ONCE ONCE IV Last administered on 09/06/17at 04:13; Start 09/06/17 at 03:15; Stop 09/06/17 at 03:44 ; Status DC Morphine Sulfate (Morphine Inj) 4 mg ONCE ONCE IV PUSH Last administered on at 03:52; Start 09/06/17 at 03:30; Stop 09/06/17 at 03:31; Status DC Ondansetron HCl (Zofran Inj) 4 mg ONCE ONCE IV PUSH ; Start 09/06/17 at 03:30; Stop 09/06/17 at 03:31; Status DC Sodium Chloride 1,000 ml @ 100 mls/hr Q10H IV Last administered on 09/06/17at 05:56; Start 09/06/17 at 04:27; Stop 09/06/17 at 14:42; Status DC Sodium Chloride (NS Flush) 2 ml UNSCH PRN IV FLUSH FLUSH AFTER USING IV ACCESS ; Start 09/06/17 at 04:30 Sodium Chloride (NS Flush) 2 ml BID IV FLUSH Last administered on 09/10/17at 08: 13; Start 09/06/17 at 09:00 Ondansetron HCl (Zofran Inj) 4 mg Q6H PRN IVP NAUSEA OR VOMITING Last administered on 09/10/17at 06:38; Start 09/06/17 at 04:30 Acetaminophen (Tylenol) 650 mg Q6H PRN PO FEVER/PAIN SCALE 1 TO 2; Start at 04:30 Acetaminophen/ Hydrocodone Bitart ([place] 5-325 Mg) 1 tab Q4H PRN PO PAIN SCALE 4 TO 10 Last administered on 09/07/17at 18:13; Start 09/06/17 at 04:30; Stop 09/08/17 at 13:50; Status DC Morphine Sulfate (Morphine Inj) 2 mg Q3H PRN IV PUSH Pain 6-10 Last administered on 09/08/17at 09:57; Start 09/06/17 at 04:30; Stop 09/08/17 at 13:35 ; Status DC Senna/Docusate Sodium (Stacy-Colace) 1 tab BID PO Last administered on at 08:12; Start 09/06/17 at 09:00 Magnesium Hydroxide (Milk Of Magnesia Liq) 30 ml Q12H PRN PO Mild constipation ; Start 09/06/17 at 04:30 Sennosides (Senokot) 17.2 mg Q12H PRN PO Moderate constipation Last administered on 09/10/17at 08:13; Start 09/06/17 at 04:30 Bisacodyl (Dulcolax Supp) 10 mg DAILY PRN RECTAL SEVERE CONSITIPATION; Start at 04:30 Lactulose (Lactulose Liq) 30 ml DAILY PRN PO SEVERE CONSITIPATION; Start at 04:30 Calcium Gluconate (Calcium Gluconate Inj) 1 gm ONCE ONCE IV PUSH ; Start at 05:00; Stop 09/06/17 at 05:01; Status UNV Dextrose (D50w (Vial) Inj) 50 ml UNSCH PRN IV PUSH HYPOGLYCEMIA-SEE COMMENTS Last administered on 09/06/17at 05:55; Start 09/06/17 at 05:00 Glucagon (Glucagon Inj) 1 mg UNSCH PRN OTHER HYPOGLYCEMIA-SEE COMMENTS; Start 09/06/17 at 05:00 Insulin Aspart (NovoLOG SUPPLEMENTAL SCALE) 1 ACHS SLIDING SCALE SQ Last administered on 09/09/17at 20:29; Start 09/06/17 at 08:00 Calcium Gluconate 1 gm/Dextrose 110 ml @ 110 mls/hr ONCE ONCE IV Last administered on 09/06/17at 05:59; Start 09/06/17 at 05:15; Stop 09/06/17 at 06:14 ; Status DC Alprazolam (Xanax) 2 mg BID PRN PO ANXIETY Last administered on 09/08/17at 12:18 ; Start 09/06/17 at 05:15; Stop 09/08/17 at 13:49; Status DC Divalproex Sodium (Depakote Er) 250 mg DAILY PO Last administered on 09/10/17at 08:13; Start 09/06/17 at 09:00 Escitalopram Oxalate (Lexapro) 5 mg DAILY PO Last administered on 09/10/17at 08: 12; Start 09/06/17 at 09:00 Gabapentin (Neurontin) 600 mg BID PO Last administered on 09/10/17at 08:12; Start 09/06/17 at 09:00 Oxycodone HCl (OxyCONTIN CR) 60 mg Q8H PO Last administered on 09/08/17at 00:48 ; Start 09/06/17 at 06:00; Stop 09/08/17 at 13:53; Status DC Miscellaneous (Pill Splitter) 1 ea UNSCH PRN OTHER SEE LABEL COMMENTS; Start at 05:15 Lactated Ringer's 1,000 ml @ 30 mls/hr Q24H PRN IV SEE LABEL COMMENTS; Start at 06:00; Stop 09/06/17 at 14:42; Status DC Sodium Chloride 500 ml @ 30 mls/hr [id number] PRN IV SEE LABEL COMMENTS; Start at 06:00; Stop 09/06/17 at 14:42; Status DC Povidone Iodine (Betadine 5% Antisepsis Kit) 1 applic VENDING MACHINE REPAIRER PRN EACH NARE SEE LABEL COMMENTS; Start 09/06/17 at 06:00; Stop 09/09/17 at 05:59; Status DC Chlorhexidine Gluconate (Chlorhexidine 2% Cloth) 3 pack VENDING MACHINE REPAIRER PRN TOPICAL SEE LABEL COMMENTS; Start 09/06/17 at 06:00; Stop 09/09/17 at 05:59; Status DC Gentamicin Sulfate (Gentamicin Inj) 240 mg STK-MED ONCE .ROUTE Last administered on 09/06/17at 08:33; Start 09/06/17 at 07:57; Stop 09/06/17 at 07:58 ; Status DC Acetaminophen 100 ml @ As Directed STK-MED ONCE IV ; Start 09/06/17 at 08:04; Stop 09/06/17 at 08:05; Status DC Hydromorphone HCl (Dilaudid Pf Inj) 0.5 mg ONCE PRN IV PAIN; Start 09/06/17 at 08:15; Stop 09/06/17 at 18:00; Status DC Famotidine (Pepcid Inj) 20 mg ONCE ONCE IV ; Start 09/06/17 at 08:15; Stop at 08:16; Status DC Midazolam HCl (Versed Inj) 2 mg ONCE ONCE IV ; Start 09/06/17 at 08:30; Stop at 08:31; Status DC Naloxone HCl (Narcan Inj) 0.4 mg STK-MED ONCE .ROUTE ; Start 09/06/17 at 10:41; Stop 09/06/17 at 10:42; Status DC Naloxone HCl (Narcan Inj) 0.4 mg STK-MED ONCE .ROUTE ; Start 09/06/17 at 10:41; Stop 09/06/17 at 10:42; Status DC Fentanyl Citrate (fentaNYL INJ) 200 mcg STK-MED ONCE .ROUTE ; Start 09/06/17 at 11:03; Stop 09/06/17 at 11:04; Status DC Lactated Ringer's 1,000 ml @ 100 mls/hr Q10H IV Last administered on at 12:52; Start 09/06/17 at 10:52 Sodium Chloride (NS Flush) 2 ml UNSCH PRN IV FLUSH FLUSH AFTER USING IV ACCESS ; Start 09/06/17 at 11:00; Stop 09/06/17 at 14:43; Status DC Sodium Chloride (NS Flush) 2 ml BID IV FLUSH ; Start 09/06/17 at 21:00; Stop at 21:00; Status DC Miscellaneous Information (Post-op Orders (for Pharmacy)) STAT ONCE XX ; Start 09/06/17 at 11:00; Stop 09/06/17 at 12:34; Status DC Enoxaparin Sodium (Lovenox Inj) 40 mg Q24H SQ Last administered on 09/10/17at 07 :24; Start 09/07/17 at 07:00 Cefazolin Sodium/ Dextrose 50 ml @ 100 mls/hr Q8H IV ; Start 09/06/17 at 13:00 ; Stop 09/10/17 at 12:59; Status Cancel Gentamicin Sulfate/Sodium Chloride 100 ml @ 200 mls/hr Q8H IV Last administered on 09/07/17at 04:58; Start 09/06/17 at 13:00; Stop 09/07/17 at 13:01 ; Status DC Miscellaneous Information UNSCH PRN XX SEE LABEL COMMENTS; Start 09/06/17 at 11:00 Multivitamins/ Minerals Therapeutic (Theragran M Tab) 1 tab DAILY PO Last administered on 09/09/17at 08:23; Start 09/07/17 at 09:00 Diphenhydramine HCl (Benadryl) 25 mg Q6H PRN PO ITCHING Last administered on at 01:21; Start 09/06/17 at 11:00 Thiamine HCl (Vitamin B1) 100 mg DAILY PO Last administered on 09/10/17at 08:12 ; Start 09/07/17 at 09:00 Folic Acid (Folate) 1 mg DAILY PO Last administered on 09/10/17at 08:12; Start 09/07/17 at 09:00 Naloxone HCl (Narcan Inj) 0.4 mg UNSCH PRN IV PUSH RESPIRATORY RATE LESS THAN 10; Start 09/06/17 at 11:00 DRY COLOR MIXER Dosage Infused (Pha) 1 Q8HR OTHER ; Start 09/06/17 at 14:00; Stop 09/08/17 at 13:51; Status DC Miscellaneous Information ALL NURSING DEPARTME... UNSCH PRN .XX SEE LABEL COMMENTS; Start 09/06/17 at 10:57; Stop 09/07/17 at 10:56; Status DC Cefazolin Sodium/ Dextrose 50 ml @ 100 mls/hr Q8H IV Last administered on 09/10at 08:13; Start 09/06/17 at 16:00; Stop 09/10/17 at 15:59 Carisoprodol (Soma) 350 mg Q8HR PO Last administered on 09/10/17at 06:38; Start 09/07/17 at 14:00 Gentamicin Sulfate 80 mg/ Sodium Chloride 102 ml @ 200 mls/hr Q8H IV Last administered on 09/10/17at 06:07; Start 09/07/17 at 13:15; Stop 09/10/17 at 12:59 Tolterodine Tartrate (Detrol La) 4 mg HS PO Last administered on 09/09/17at 20: 28; Start 09/07/17 at 21:00 Alprazolam (Xanax) 1 mg Q12HR PRN PO ANXIETY Last administered on 09/10/17at 01: 25; Start 09/08/17 at 13:45 Acetaminophen/ Hydrocodone Bitart ([place] 5-325 Mg) 1 tab Q4H PRN PO PAIN SCALE 4 TO 10 Last administered on 09/10/17at 08:14; Start 09/08/17 at 14:00 Oxycodone HCl (OxyCONTIN CR) 30 mg Q8H PO ; Start 09/08/17 at 14:00; Status UNV Oxycodone HCl (OxyCONTIN CR) 30 mg Q12HR PO Last administered on 09/10/17at 08: 12; Start 09/08/17 at 21:00; Stop 09/10/17 at 08:48; Status DC Calcium/Vitamin D (Oscal-D 250-125) 250 mg Q12HR PO Last administered on at 08:13; Start 09/08/17 at 21:00 Lactated Ringer's 1,000 ml @ As Directed STK-MED ONCE IV ; Start 09/06/17 at 12 :00; Stop 09/08/17 at 14:50; Status DC Sodium Chloride 250 ml @ As Directed STK-MED ONCE IV ; Start 09/06/17 at 12:00 ; Stop 09/08/17 at 14:50; Status DC Lidocaine HCl (Xylocaine-Mpf 1% Inj) 5 ml STK-MED ONCE OTHER ; Start 09/06/17 at 12:00; Stop 09/08/17 at 14:50; Status DC Rocuronium [place] (Zemuron Inj) 50 mg STK-MED ONCE IV PUSH ; Start 09/06/17 at 12:00; Stop 09/08/17 at 14:50; Status DC Neostigmine Methylsulfate (Prostigmine Inj) 5 mg STK-MED ONCE IV PUSH ; Start at 12:00; Stop 09/08/17 at 14:50; Status DC Glycopyrrolate (Robinul Inj) 1 mg STK-MED ONCE IV PUSH ; Start 09/06/17 at 12:00 ; Stop 09/08/17 at 14:50; Status DC Phenylephrine HCl (Neosynephrine/ NS 1000 Mcg/10ml Syr) 2,000 mcg STK-MED ONCE IV ; Start 09/06/17 at 12:00; Stop 09/08/17 at 14:50; Status DC Phenylephrine HCl (Neosynephrine Inj) 10 mg STK-MED ONCE IV ; Start 09/06/17 at 12:00; Stop 09/08/17 at 14:50; Status DC Ephedrine Sulfate (ePHEDrine/NS 25 MG/5 ML SYR) 50 mg STK-MED ONCE IV ; Start at 12:00; Stop 09/08/17 at 14:50; Status DC Ondansetron HCl (Zofran Inj) 4 mg STK-MED ONCE IV ; Start 09/06/17 at 12:00; Stop 09/08/17 at 14:50; Status DC Cefazolin Sodium (Ancef Inj) 2,000 mg STK-MED ONCE IV ; Start 09/06/17 at 12:00 ; Stop 09/08/17 at 14:50; Status DC Propofol (Diprivan 200 Mg/20 ml Inj) 200 mg STK-MED ONCE IV ; Start 09/06/17 at 12:00; Stop 09/08/17 at 14:50; Status DC Oxycodone HCl (OxyCONTIN CR) 60 mg TID PO ; Start 09/10/17 at 09:00; Status UNV Date of Insertion: Sep 07, 2017 A/P Problem List: (1) Fall ICD Code: W19.XXXA - Unspecified fall, initial encounter (2) Open fracture of right fibula and tibia ICD Code: S82.201B - Unspecified fracture of shaft of right tibia, initial encounter for open fracture type I or II; S82.401B - Unspecified fracture of shaft of right fibula, initial encounter for open fracture type I or II (3) Hypocalcemia ICD Code: E83.51 - Hypocalcemia (4) Renal insufficiency ICD Code: N28.9 - Disorder of kidney and ureter, unspecified (5) DM (diabetes mellitus) ICD Code: E11.9 - Type 2 diabetes mellitus without complications (6) Anemia ICD Code: D64.9 - Anemia, unspecified Assessment and Plan A/P: 57 years old female s/p mechanical fall - trip on a rug S/P ORIF Right Tib-Fib Fx 09/06: Patient was discharged to SNF yesterday. Pending placement. Ortho wants patient on prophylaxis Lovenox. History of chronic pain Since I've seen patient yesterday she has not been sedated. Will resume her home dosage of oxycodone. Most likely she was sedated due to IV morphine given with home medication. Acute anemia- due to post op on top of chronic anemia Iron deficeincy Secondary to surgery. Status post transfusion of packed red blood cells. Responded appropriately. Stable. History of Bipolar disorder. continue Depakote. Continue with Xanax to 1 mg po q 12 prn for anxiety Hypocalcemia: - replace with po, check Vit D levels Calcium + vit D Acute Renal Insufficiency: Creatinine 1.22, no previous labs for comparison. IVF for hydration. Repeat labs DM type 2 insulin requiring :- per patient last Hemoglobin A1C was 4.0 a month ago- bid [place] was decreased to 30 units bid - PCP - will keep on sliding scale here for now- - good readings History of chronic pain/Neuropathy. continue on Oxycontin bid and Gabapentin History of Bladder instability- controlled on Ditropan 4 mg hs DVT Prophylaxis: - Lovenox Discharge Planning Pending placement. Kaelyn Rasmussen MD Sep 10, 2017 08:57
[2017-09-10] MEDS: oxyCODONE HCL 20 MG CONTROLLED RELEASE TAB PO SCH ×2 (10:00→12:52)
[2017-09-10 10:47] VITALS: BP 154/80; PULSE 93; RESP 17; TEMP 97.7; O2SAT 93
== END 2017-09-10 14:02 | DRG 493 ==
LOC: NEPC 02:18 → NEDA 04:28 → N06B 05:36
PROVIDERS: ADMIT Family Medicine; ATTEND Family Medicine
PROC: 0QSG06Z Reposition Right Tibia with Intramedullary Internal Fixation Device, Open Approach (ICD-10-PCS; 2017-09-06)
PROC: 0QSG04Z Reposition Right Tibia with Internal Fixation Device, Open Approach (ICD-10-PCS; 2017-09-06)
PROC: 0QSJ04Z Reposition Right Fibula with Internal Fixation Device, Open Approach (ICD-10-PCS; principal; 2017-09-06 07:33)
PROC: 30233N1 Transfusion of Nonautologous Red Blood Cells into Peripheral Vein, Percutaneous Approach (ICD-10-PCS; 2017-09-08)
DX: S82.291B Other fracture of shaft of right tibia, initial encounter for open fracture type I or II (principal); D62 Acute posthemorrhagic anemia; I10 Essential (primary) hypertension; E11.9 Type 2 diabetes mellitus without complications; S82.391A Other fracture of lower end of right tibia, initial encounter for closed fracture; S82.491B Other fracture of shaft of right fibula, initial encounter for open fracture type I or II; W18.30XA Fall on same level, unspecified, initial encounter; Y93.89 Activity, other specified; Y92.009 Unspecified place in unspecified non-institutional (private) residence as the place of occurrence of the external cause; Z79.4 Long term (current) use of insulin; S82.839A Other fracture of upper and lower end of unspecified fibula, initial encounter for closed fracture; G89.4 Chronic pain syndrome; M54.5 Low back pain; F31.9 Bipolar disorder, unspecified; F41.9 Anxiety disorder, unspecified; E83.51 Hypocalcemia; N28.9 Disorder of kidney and ureter, unspecified
CPT/HCPCS: 36430; 70450; 71045; 72125; 72170; 73590; 73610; 73700; 76000; 80048; 80053; 80307; 82306; 82652; 82728; 82948; 83540; 83550; 84155; 85025; 85027; 85610; 85730; 86850; 86900; 86901; 86920; 93005; 96365; 96375; C1713; J0131; J0610; J0690; J1580; J1650; J1815; J2270; J2310; J2370; J2405; J2710; J3010; J7030; J7050; J7120; L2114; P9016